=== PATIENT | male | born 1935 | race Caucasian/White ===

== ENCOUNTER → 2016-10-18 | Outpatient (CLI) | payer MEDICARE, OTHER ==
[~2016-10-18] MED LIST: ALLO300T2 PO; BUMETANIDE (0.25MG/ML) 4 ML VIAL IV ONE; BUMETANIDE (0.25MG/ML) 4 ML VIAL ONE; CYANOCOBALAMIN (B-12) 1000 MCG/1 ML VIAL IM ONE; CYANOCOBALAMIN (B-12) 1000 MCG/1 ML VIAL ONE; DIGO0.1262 PO; DILT60TA28 PO; FURO40TA4 PO; LEVO112T4 PO; POT20T PO; TICA90TA PO
[2016-10-18 10:00] VITALS: BP 139/64
[2016-10-18 11:45] VITALS: BP 133/62
[2016-10-18 18:58] LABS: BUN/Creatinine Ratio 29.9; Potassium 4.4 mmol/L (3.5-5.1)
== END | disposition home or self-care (01) ==
LOC: CHF HDHVI 10:02
PROVIDERS: ATTEND Internal Medicine Cardiovascular Disease
DX: I10 Essential (primary) hypertension (principal); D64.9 Anemia, unspecified
CPT/HCPCS: 36415; 80048; 93701; 96372; 96374; G0463

== ENCOUNTER → 2016-11-01 | Outpatient (CLI) | payer MEDICARE, OTHER ==
[~2016-11-01] VITALS: Ht 30.5 cm; Wt 106.3 kg
[~2016-11-01] MED LIST changes: -BUMETANIDE (0.25MG/ML) 4 ML VIAL IV ONE; -BUMETANIDE (0.25MG/ML) 4 ML VIAL ONE
[2016-11-01 11:30] VITALS: BP 129/67
[2016-11-01 17:10] LABS: Basophils # (auto) 0 uL; Basophils % (auto) 0.5 % (0.0-2.0); Eosinophils # (auto) 0.5 uL; Eosinophils % (auto) 6.8 % (0.0-7.0); Hematocrit 38.3 % (41.0-53.0); Hemoglobin 12.4 g/dL (13.5-17.5); Lymphocytes # (auto) 1.3 uL; Lymphocytes % (auto) 17.7 % (10.0-50.0); Mean Corpuscular Hemoglobin 31.8 pg (28.0-32.0); Mean Corpuscular Hgb Conc. 32.4 g/dL (32.0-36.0); Mean Platelet Volume 6.8 fL (7.4-10.4); Monocytes # (auto) 0.5 uL; Monocytes % (auto) 6.9 % (0.0-12.0); Neutrophils # (auto) 5.1 uL; Neutrophils % (auto) 68.1 % (37.0-80.0); Platelet Count (auto) 211 10^3/uL (140-450); Red Cell Distribution Width 16.6 % (11.6-16.0); White Blood Cell 7.5 10^3/uL (4.4-10.8)
== END | disposition home or self-care (01) ==
LOC: CHF HDHVI 10:35
PROVIDERS: ATTEND Internal Medicine Cardiovascular Disease
DX: T46.0X6D Underdosing of cardiac-stimulant glycosides and drugs of similar action, subsequent encounter (principal); M10.9 Gout, unspecified; D64.9 Anemia, unspecified
CPT/HCPCS: 36415; 80162; 84550; 85025; 85049; 96372; G0463

== ENCOUNTER → 2016-11-15 | Outpatient (CLI) | payer MEDICARE, OTHER ==
[~2016-11-15] VITALS: Ht 30.5 cm; Wt 107.5 kg
[~2016-11-15] MED LIST changes: +BUMETANIDE (0.25MG/ML) 4 ML VIAL IV ONE; +BUMETANIDE (0.25MG/ML) 4 ML VIAL ONE; -CYANOCOBALAMIN (B-12) 1000 MCG/1 ML VIAL IM ONE; -CYANOCOBALAMIN (B-12) 1000 MCG/1 ML VIAL ONE; +IOHEXOL 350 MG/ML 100ML IJ ONE
[2016-11-15 09:08] VITALS: BP 147/68
[2016-11-15 12:24] LABS: Basophils # (auto) 0 uL; Basophils % (auto) 0.4 % (0.0-2.0); Eosinophils # (auto) 0.4 uL; Hematocrit 42.7 % (41.0-53.0); Hemoglobin 13.5 g/dL (13.5-17.5); Lymphocytes % (auto) 24.2 % (10.0-50.0); Mean Corpuscular Hemoglobin 31.3 pg (28.0-32.0); Mean Corpuscular Hgb Conc. 31.7 g/dL (32.0-36.0); Mean Corpuscular Volume 98.8 fL (80.0-100.0); Mean Platelet Volume 6.9 fL (7.4-10.4); Monocytes # (auto) 0.3 uL; Monocytes % (auto) 3.8 % (0.0-12.0); Neutrophils # (auto) 5.4 uL; Neutrophils % (auto) 66.6 % (37.0-80.0); Platelet Count (auto) 251 10^3/uL (140-450); White Blood Cell 8.1 10^3/uL (4.4-10.8)
[2016-11-15 13:23] LABS: BUN/Creatinine Ratio 31.7; Calcium 9.1 mg/dL (8.5-10.1); Magnesium 2.5 mg/dL (1.6-2.6)
== END | disposition home or self-care (01) ==
LOC: Rad HDHVI 08:53
PROVIDERS: ATTEND Internal Medicine Cardiovascular Disease
DX: I10 Essential (primary) hypertension (principal); E11.9 Type 2 diabetes mellitus without complications; E83.40 Disorders of magnesium metabolism, unspecified; D64.9 Anemia, unspecified
CPT/HCPCS: 36415; 70496; 70498; 80048; 83036; 83735; 85025; 93306; 96374; G0463; J1642

== ENCOUNTER → 2016-11-28 | Outpatient (CLI) | payer MEDICARE, OTHER ==
[~2016-11-28] MED LIST changes: -BUMETANIDE (0.25MG/ML) 4 ML VIAL IV ONE; -BUMETANIDE (0.25MG/ML) 4 ML VIAL ONE; -IOHEXOL 350 MG/ML 100ML IJ ONE; +VANCOMYCIN 1GM/250ML D5W 250 ML IV ONE
[2016-11-28 14:40] VITALS: BP 114/58
[2016-11-28 16:50] VITALS: BP 129/65
[2016-11-28 17:40] LABS: Basophils # (auto) 0 uL; Eosinophils # (auto) 0.1 uL; Hemoglobin 13.4 g/dL (13.5-17.5); Mean Platelet Volume 7.7 fL (7.4-10.4)
[2016-11-28 17:48] LABS: Basophils % (auto) 0.1 % (0.0-2.0); Eosinophils % (auto) 0.9 % (0.0-7.0); Hematocrit 42.4 % (41.0-53.0); Lymphocytes # (auto) 0.9 uL; Mean Corpuscular Hemoglobin 31.2 pg (28.0-32.0); Mean Corpuscular Hgb Conc. 31.7 g/dL (32.0-36.0); Mean Corpuscular Volume 98.5 fL (80.0-100.0); Monocytes # (auto) 1.2 uL; Monocytes % (auto) 11.6 % (0.0-12.0); Neutrophils # (auto) 8.2 uL; Neutrophils % (auto) 78.4 % (37.0-80.0); Platelet Count (auto) 247 10^3/uL (140-450); Red Cell Distribution Width 16.1 % (11.6-16.0); White Blood Cell 10.5 10^3/uL (4.4-10.8)
[2016-11-28 18:59] LABS: Albumin 3.3 g/dL (3.4-5.0); Bilirubin, Total 1.4 mg/dL (0.2-1.0); Calcium 8.7 mg/dL (8.5-10.1); Potassium 4.2 mmol/L (3.5-5.1); Total Protein 7.9 g/dL (6.4-8.2); Uric Acid 7.8 mg/dL (3.5-7.2)
== END | disposition home or self-care (01) ==
LOC: CHF HDHVI 14:39
PROVIDERS: ATTEND Internal Medicine Cardiovascular Disease
DX: L03.113 Cellulitis of right upper limb (principal); I50.9 Heart failure, unspecified; J44.9 Chronic obstructive pulmonary disease, unspecified; M10.9 Gout, unspecified
CPT/HCPCS: 36415; 80053; 84550; 85025; 96365; G0463; J3370

== ENCOUNTER → 2016-12-13 | Outpatient (CLI) | payer MEDICARE, OTHER ==
[~2016-12-13] MED LIST changes: +CYANOCOBALAMIN (B-12) 1000 MCG/1 ML VIAL IM ONE; +TESTOSTERONE CYPIONATE 100 MG/0.5ML 10mLMDV HEART CENTER IM ONE; +TESTOSTERONE CYPIONATE 200 MG/ML 1ML VIAL IM ONE; -VANCOMYCIN 1GM/250ML D5W 250 ML IV ONE
[2016-12-13 11:30] VITALS: BP 122/63
== END | disposition home or self-care (01) ==
LOC: CHF HDHVI 10:13
PROVIDERS: ATTEND Internal Medicine Cardiovascular Disease
DX: I11.0 Hypertensive heart disease with heart failure (principal); I50.9 Heart failure, unspecified; M62.81 Muscle weakness (generalized); E29.1 Testicular hypofunction; R53.81 Other malaise; R53.83 Other fatigue
CPT/HCPCS: 96372; G0463; J1071

== ENCOUNTER → 2016-12-20 | Outpatient (CLI) | payer MEDICARE, OTHER ==
[~2016-12-20] MED LIST changes: +BUMETANIDE (0.25MG/ML) 4 ML VIAL IV ONE; +BUMETANIDE (0.25MG/ML) 4 ML VIAL ONE; +CYANOCOBALAMIN (B-12) 1000 MCG/1 ML VIAL ONE; +POTASSIUM CHL 20 Meq TABLET PO ONE; -TESTOSTERONE CYPIONATE 100 MG/0.5ML 10mLMDV HEART CENTER IM ONE; -TESTOSTERONE CYPIONATE 200 MG/ML 1ML VIAL IM ONE
[2016-12-20 11:15] VITALS: BP 119/63
[2016-12-20 12:10] LABS: Basophils # (auto) 0 uL; Basophils % (auto) 0.5 % (0.0-2.0); DEFINITIVE VIEW TRANSMISSION; Eosinophils # (auto) 0.7 uL; Eosinophils % (auto) 8.5 % (0.0-7.0); Hematocrit 39.4 % (41.0-53.0); Hemoglobin 13.2 g/dL (13.5-17.5); Lymphocytes # (auto) 2.1 uL; Lymphocytes % (auto) 25.2 % (10.0-50.0); Mean Corpuscular Hemoglobin 31.9 pg (28.0-32.0); Mean Corpuscular Hgb Conc. 33.5 g/dL (32.0-36.0); Mean Corpuscular Volume 95.2 fL (80.0-100.0); Mean Platelet Volume 7.2 fL (7.4-10.4); Monocytes # (auto) 0.5 uL; Monocytes % (auto) 5.8 % (0.0-12.0); Neutrophils # (auto) 5.1 uL; Platelet Count (auto) 211 10^3/uL (140-450); Red Cell Distribution Width 16.4 % (11.6-16.0); White Blood Cell 8.5 10^3/uL (4.4-10.8)
[2016-12-20 13:48] LABS: BUN/Creatinine Ratio 21.8; Magnesium 2.4 mg/dL (1.6-2.6); Potassium 4.1 mmol/L (3.5-5.1)
== END | disposition home or self-care (01) ==
LOC: CHF HDHVI 09:47
PROVIDERS: ATTEND Internal Medicine Cardiovascular Disease
DX: I10 Essential (primary) hypertension (principal); E83.40 Disorders of magnesium metabolism, unspecified; D64.9 Anemia, unspecified; E55.9 Vitamin D deficiency, unspecified
CPT/HCPCS: 36415; 80048; 82306; 83735; 85025; 96372; 96374; G0463

== ENCOUNTER → 2016-12-27 | Outpatient (CLI) | payer MEDICARE, OTHER ==
[2016-12-27 12:50] VITALS: BP 120/63
[2016-12-27 16:46] LABS: Potassium 3.9 mmol/L (3.5-5.1)
== END | disposition home or self-care (01) ==
LOC: CHF HDHVI 12:24
PROVIDERS: ATTEND Internal Medicine Cardiovascular Disease
DX: I50.9 Heart failure, unspecified (principal); Z79.899 Other long term (current) drug therapy; T46.0X6D Underdosing of cardiac-stimulant glycosides and drugs of similar action, subsequent encounter
CPT/HCPCS: 36415; 80162; 82565; 84132; 84520; 96372; 96374; G0463

== ENCOUNTER → 2016-12-29 | Outpatient (CLI) | payer MEDICARE, OTHER ==
[~2016-12-29] MED LIST changes: -CYANOCOBALAMIN (B-12) 1000 MCG/1 ML VIAL IM ONE; -CYANOCOBALAMIN (B-12) 1000 MCG/1 ML VIAL ONE
[2016-12-29 11:55] VITALS: BP 122/59
[2016-12-29 16:10] LABS: Basophils # (auto) 0 uL; Basophils % (auto) 0.3 % (0.0-2.0); Eosinophils # (auto) 0.6 uL; Eosinophils % (auto) 6.2 % (0.0-7.0); Hematocrit 38.7 % (41.0-53.0); Hemoglobin 12.8 g/dL (13.5-17.5); Lymphocytes # (auto) 1.4 uL; Lymphocytes % (auto) 15.3 % (10.0-50.0); Mean Corpuscular Hemoglobin 31.8 pg (28.0-32.0); Mean Corpuscular Hgb Conc. 33.2 g/dL (32.0-36.0); Mean Corpuscular Volume 95.9 fL (80.0-100.0); Monocytes # (auto) 0.7 uL; Monocytes % (auto) 7.3 % (0.0-12.0); Neutrophils # (auto) 6.5 uL; Neutrophils % (auto) 70.9 % (37.0-80.0); Platelet Count (auto) 215 10^3/uL (140-450); Red Cell Distribution Width 17.3 % (11.6-16.0); White Blood Cell 9.2 10^3/uL (4.4-10.8)
[2016-12-29 16:37] LABS: Potassium 3.7 mmol/L (3.5-5.1)
== END | disposition home or self-care (01) ==
LOC: CHF HDHVI 10:55
PROVIDERS: ATTEND Internal Medicine Cardiovascular Disease
DX: I50.9 Heart failure, unspecified (principal); Z79.899 Other long term (current) drug therapy; D64.9 Anemia, unspecified
CPT/HCPCS: 36415; 82565; 84132; 84520; 85025; 96374; G0463

== ENCOUNTER → 2017-01-03 | Outpatient (CLI) | payer MEDICARE, OTHER ==
[~2017-01-03] VITALS: Ht 30.5 cm; Wt 108.9 kg
[~2017-01-03] MED LIST changes: +CYANOCOBALAMIN (B-12) 1000 MCG/1 ML VIAL IM ONE; +CYANOCOBALAMIN (B-12) 1000 MCG/1 ML VIAL ONE
[2017-01-03 11:30] VITALS: BP 110/63
[2017-01-03 16:53] LABS: Potassium 3.7 mmol/L (3.5-5.1)
== END | disposition home or self-care (01) ==
LOC: CHF HDHVI 10:45
PROVIDERS: ATTEND Internal Medicine Cardiovascular Disease
DX: I50.9 Heart failure, unspecified (principal); Z79.899 Other long term (current) drug therapy
CPT/HCPCS: 36415; 82565; 84132; 84520; 96372; 96374; G0463

== ENCOUNTER → 2017-01-06 | Outpatient (CLI) | payer MEDICARE, OTHER ==
[~2017-01-06] MED LIST changes: -BUMETANIDE (0.25MG/ML) 4 ML VIAL IV ONE; -BUMETANIDE (0.25MG/ML) 4 ML VIAL ONE; -CYANOCOBALAMIN (B-12) 1000 MCG/1 ML VIAL IM ONE; -CYANOCOBALAMIN (B-12) 1000 MCG/1 ML VIAL ONE; -POTASSIUM CHL 20 Meq TABLET PO ONE
[2017-01-06 11:20] VITALS: BP 116/61
[2017-01-06 12:50] LABS: Potassium 3.7 mmol/L (3.5-5.1)
== END | disposition home or self-care (01) ==
LOC: CHF HDHVI 10:42
PROVIDERS: ATTEND Internal Medicine Cardiovascular Disease
DX: I10 Essential (primary) hypertension (principal); I50.9 Heart failure, unspecified; R94.4 Abnormal results of kidney function studies
CPT/HCPCS: 36415; 82565; 84132; 84520; 93701; G0463

== ENCOUNTER → 2017-01-10 | Outpatient (CLI) | payer MEDICARE, OTHER ==
[~2017-01-10] MED LIST changes: +CYANOCOBALAMIN (B-12) 1000 MCG/1 ML VIAL IM ONE; +CYANOCOBALAMIN (B-12) 1000 MCG/1 ML VIAL ONE; +POTASSIUM CHL 10 Meq TABLET PO ONE
[2017-01-10 11:15] VITALS: BP 130/62
[2017-01-10 12:52] LABS: Potassium 3.6 mmol/L (3.5-5.1)
== END | disposition home or self-care (01) ==
LOC: CHF HDHVI 10:19
PROVIDERS: ATTEND Internal Medicine Cardiovascular Disease
DX: I50.9 Heart failure, unspecified (principal); I10 Essential (primary) hypertension; R94.4 Abnormal results of kidney function studies
CPT/HCPCS: 36415; 82565; 84132; 84520; 94620; 96372; G0463

== ENCOUNTER → 2017-01-16 | Outpatient (CLI) | payer MEDICARE, OTHER ==
[~2017-01-16] MED LIST changes: -CYANOCOBALAMIN (B-12) 1000 MCG/1 ML VIAL IM ONE; -CYANOCOBALAMIN (B-12) 1000 MCG/1 ML VIAL ONE; -POTASSIUM CHL 10 Meq TABLET PO ONE
[2017-01-16 10:25] VITALS: BP 114/64
[2017-01-16 11:00] VITALS: BP 137/68
== END | disposition home or self-care (01) ==
LOC: CHF HDHVI 10:24
PROVIDERS: ATTEND Internal Medicine Cardiovascular Disease
DX: I83.002 Varicose veins of unspecified lower extremity with ulcer of calf (principal); I50.9 Heart failure, unspecified; I25.10 Atherosclerotic heart disease of native coronary artery without angina pectoris; J44.9 Chronic obstructive pulmonary disease, unspecified; I73.9 Peripheral vascular disease, unspecified; L97.929 Non-pressure chronic ulcer of unspecified part of left lower leg with unspecified severity; L97.919 Non-pressure chronic ulcer of unspecified part of right lower leg with unspecified severity
CPT/HCPCS: G0463

== ENCOUNTER → 2017-01-19 | Outpatient (CLI) | payer MEDICARE, OTHER ==
[~2017-01-19] MED LIST changes: +CYANOCOBALAMIN (B-12) 1000 MCG/1 ML VIAL IM ONE; +CYANOCOBALAMIN (B-12) 1000 MCG/1 ML VIAL ONE
[2017-01-19 11:00] VITALS: BP 128/62
[2017-01-19 16:35] LABS: Basophils # (auto) 0 uL; Basophils % (auto) 0.4 % (0.0-2.0); Eosinophils # (auto) 0.4 uL; Eosinophils % (auto) 3.8 % (0.0-7.0); Hematocrit 41.9 % (41.0-53.0); Hemoglobin 13.9 g/dL (13.5-17.5); Lymphocytes % (auto) 19.6 % (10.0-50.0); Mean Corpuscular Hemoglobin 31.4 pg (28.0-32.0); Mean Corpuscular Hgb Conc. 33.3 g/dL (32.0-36.0); Mean Corpuscular Volume 94.5 fL (80.0-100.0); Mean Platelet Volume 7.1 fL (7.4-10.4); Monocytes # (auto) 0.7 uL; Monocytes % (auto) 6.9 % (0.0-12.0); Neutrophils # (auto) 7.2 uL; Neutrophils % (auto) 69.3 % (37.0-80.0); Platelet Count (auto) 308 10^3/uL (140-450); Red Cell Distribution Width 16.8 % (11.6-16.0); White Blood Cell 10.4 10^3/uL (4.4-10.8)
[2017-01-19 16:44] LABS: Calcium 9.5 mg/dL (8.5-10.1); Potassium 3.3 mmol/L (3.5-5.1)
== END | disposition home or self-care (01) ==
LOC: CHF HDHVI 09:54
PROVIDERS: ATTEND Internal Medicine Cardiovascular Disease
DX: I10 Essential (primary) hypertension (principal); D64.9 Anemia, unspecified
CPT/HCPCS: 36415; 80048; 85025; 96372; G0463

== ENCOUNTER → 2017-01-24 | Outpatient (CLI) | payer MEDICARE, OTHER ==
[2017-01-24 10:35] VITALS: BP 125/66
[2017-01-24 11:30] VITALS: BP 120/68
[2017-01-24 13:23] LABS: Potassium 3.8 mmol/L (3.5-5.1)
== END | disposition home or self-care (01) ==
LOC: CHF HDHVI 10:46
PROVIDERS: ATTEND Internal Medicine Cardiovascular Disease
DX: I10 Essential (primary) hypertension (principal); R94.4 Abnormal results of kidney function studies
CPT/HCPCS: 36415; 82565; 84132; 84520; 96372; G0463

== ENCOUNTER → 2017-01-31 | Outpatient (CLI) | payer MEDICARE, OTHER ==
[~2017-01-31] VITALS: Ht 30.5 cm; Wt 0.5 kg
[~2017-01-31] MED LIST changes: +TESTOSTERONE CYPIONATE 200 MG/ML 1ML VIAL IM ONE
[2017-01-31 10:00] VITALS: BP 124/65
[2017-01-31 11:00] VITALS: BP 138/74
[2017-01-31 16:47] LABS: Potassium 3.1 mmol/L (3.5-5.1)
== END | disposition home or self-care (01) ==
LOC: CHF HDHVI 10:07
PROVIDERS: ATTEND Internal Medicine Cardiovascular Disease
DX: I10 Essential (primary) hypertension (principal); R94.4 Abnormal results of kidney function studies
CPT/HCPCS: 36415; 82565; 84132; 84520; 96372; G0463; J1071

== ENCOUNTER → 2017-02-02 | Outpatient (CLI) | payer MEDICARE, OTHER ==
[~2017-02-02] MED LIST changes: -CYANOCOBALAMIN (B-12) 1000 MCG/1 ML VIAL IM ONE; -CYANOCOBALAMIN (B-12) 1000 MCG/1 ML VIAL ONE; -TESTOSTERONE CYPIONATE 200 MG/ML 1ML VIAL IM ONE
[2017-02-02 09:55] VITALS: BP 123/52
[2017-02-02 10:17] VITALS: BP 127/72
== END | disposition home or self-care (01) ==
LOC: CHF HDHVI 09:59
PROVIDERS: ATTEND Internal Medicine Cardiovascular Disease
DX: E87.6 Hypokalemia (principal)
CPT/HCPCS: 36415; 84132; G0463

== ENCOUNTER → 2017-02-07 | Outpatient (CLI) | payer MEDICARE, OTHER ==
[~2017-02-07] MED LIST changes: +CYANOCOBALAMIN (B-12) 1000 MCG/1 ML VIAL IM ONE; +CYANOCOBALAMIN (B-12) 1000 MCG/1 ML VIAL ONE
[2017-02-07 10:30] VITALS: BP 119/58
[2017-02-07 11:50] VITALS: BP 114/58
[2017-02-07 16:27] LABS: Potassium 3.7 mmol/L (3.5-5.1)
== END | disposition home or self-care (01) ==
LOC: CHF HDHVI 10:32
PROVIDERS: ATTEND Internal Medicine Cardiovascular Disease
DX: E87.6 Hypokalemia (principal); R94.4 Abnormal results of kidney function studies
CPT/HCPCS: 36415; 82565; 84132; 84520; 93701; 96372; G0463

== ENCOUNTER → 2017-02-14 | Outpatient (CLI) | payer MEDICARE, OTHER ==
[~2017-02-14] MED LIST changes: +BUMETANIDE (0.25MG/ML) 4 ML VIAL IV ONE; +BUMETANIDE (0.25MG/ML) 4 ML VIAL ONE; +POTASSIUM CHL 20 Meq TABLET PO ONE
[2017-02-14 10:50] VITALS: BP 119/59
[2017-02-14 16:25] LABS: Magnesium 2.1 mg/dL (1.6-2.6); Potassium 4.1 mmol/L (3.5-5.1)
[2017-02-14 16:41] LABS: Basophils # (auto) 0 uL; Basophils % (auto) 0.4 % (0.0-2.0); Eosinophils # (auto) 0.4 uL; Eosinophils % (auto) 4.3 % (0.0-7.0); Hematocrit 41.4 % (41.0-53.0); Hemoglobin 13.5 g/dL (13.5-17.5); Lymphocytes # (auto) 1.9 uL; Lymphocytes % (auto) 19.6 % (10.0-50.0); Mean Corpuscular Hemoglobin 31.4 pg (28.0-32.0); Mean Corpuscular Hgb Conc. 32.6 g/dL (32.0-36.0); Mean Corpuscular Volume 96.1 fL (80.0-100.0); Mean Platelet Volume 6.8 fL (7.4-10.4); Monocytes # (auto) 0.9 uL; Monocytes % (auto) 9.2 % (0.0-12.0); Neutrophils # (auto) 6.6 uL; Neutrophils % (auto) 66.5 % (37.0-80.0); Platelet Count (auto) 280 10^3/uL (140-450); Red Cell Distribution Width 18.7 % (11.6-16.0); White Blood Cell 9.9 10^3/uL (4.4-10.8)
== END | disposition home or self-care (01) ==
LOC: CHF HDHVI 10:22
PROVIDERS: ATTEND Internal Medicine Cardiovascular Disease
DX: E83.40 Disorders of magnesium metabolism, unspecified (principal); E87.6 Hypokalemia; R94.4 Abnormal results of kidney function studies; D64.9 Anemia, unspecified
CPT/HCPCS: 36415; 82565; 83735; 84132; 84520; 85025; 96372; 96374; G0463

== ENCOUNTER → 2017-02-21 | Outpatient (CLI) | payer MEDICARE, OTHER ==
[~2017-02-21] MED LIST changes: -CYANOCOBALAMIN (B-12) 1000 MCG/1 ML VIAL IM ONE; -CYANOCOBALAMIN (B-12) 1000 MCG/1 ML VIAL ONE
[2017-02-21 10:40] VITALS: BP 120/64
[2017-02-21 11:40] VITALS: BP 123/60
[2017-02-21 16:57] LABS: Potassium 3.7 mmol/L (3.5-5.1)
== END | disposition home or self-care (01) ==
LOC: CHF HDHVI 10:33
PROVIDERS: ATTEND Internal Medicine Cardiovascular Disease
DX: I11.0 Hypertensive heart disease with heart failure (principal); I50.9 Heart failure, unspecified; I25.10 Atherosclerotic heart disease of native coronary artery without angina pectoris
CPT/HCPCS: 36415; 82565; 84132; 84520; 93701; 96374; G0463

== ENCOUNTER → 2017-02-28 | Outpatient (CLI) | payer MEDICARE, OTHER ==
[~2017-02-28] MED LIST changes: -BUMETANIDE (0.25MG/ML) 4 ML VIAL IV ONE; -BUMETANIDE (0.25MG/ML) 4 ML VIAL ONE; -POTASSIUM CHL 20 Meq TABLET PO ONE
[2017-02-28 10:30] VITALS: BP 107/70
[2017-02-28 11:50] VITALS: BP 123/73
== END | disposition home or self-care (01) ==
LOC: CHF HDHVI 10:32
PROVIDERS: ATTEND Internal Medicine Cardiovascular Disease
DX: I50.9 Heart failure, unspecified (principal); I27.2 Other secondary pulmonary hypertension; E87.70 Fluid overload, unspecified; T14.8 Other injury of unspecified body region; X58.XXXA Exposure to other specified factors, initial encounter; Y93.89 Activity, other specified; Y92.89 Other specified places as the place of occurrence of the external cause; Y99.8 Other external cause status
CPT/HCPCS: 94620; G0463

== ENCOUNTER → 2017-03-14 | Outpatient (CLI) | payer MEDICARE, OTHER ==
[~2017-03-14] MED LIST changes: +CYANOCOBALAMIN (B-12) 1000 MCG/1 ML VIAL IM ONE; +CYANOCOBALAMIN (B-12) 1000 MCG/1 ML VIAL ONE
[2017-03-14 17:28] LABS: Potassium 3.9 mmol/L (3.5-5.1)
== END | disposition home or self-care (01) ==
LOC: CHF HDHVI 10:07
PROVIDERS: ATTEND Internal Medicine Cardiovascular Disease
DX: R94.4 Abnormal results of kidney function studies (principal); E87.6 Hypokalemia
CPT/HCPCS: 36415; 82565; 84132; 84520; 96372; G0463

== ENCOUNTER → 2017-03-28 | Outpatient (CLI) | payer MEDICARE, OTHER ==
[~2017-03-28] MED LIST changes: +BUMETANIDE (0.25MG/ML) 4 ML VIAL IV ONE; +BUMETANIDE (0.25MG/ML) 4 ML VIAL ONE; -CYANOCOBALAMIN (B-12) 1000 MCG/1 ML VIAL IM ONE; -CYANOCOBALAMIN (B-12) 1000 MCG/1 ML VIAL ONE; +POTASSIUM CHL 20 Meq TABLET PO ONE
[2017-03-28 09:35] VITALS: BP 134/66
[2017-03-28 10:25] VITALS: BP 109/53
[2017-03-28 12:07] LABS: Basophils # (auto) 0 uL; Basophils % (auto) 0.5 % (0.0-2.0); Eosinophils # (auto) 0.5 uL; Eosinophils % (auto) 6.3 % (0.0-7.0); Hematocrit 38.8 % (41.0-53.0); Hemoglobin 12.9 g/dL (13.5-17.5); Lymphocytes # (auto) 2.2 uL; Lymphocytes % (auto) 25.6 % (10.0-50.0); Mean Corpuscular Hemoglobin 31.9 pg (28.0-32.0); Mean Corpuscular Hgb Conc. 33.3 g/dL (32.0-36.0); Mean Corpuscular Volume 95.7 fL (80.0-100.0); Mean Platelet Volume 6.9 fL (7.4-10.4); Monocytes # (auto) 0.5 uL; Monocytes % (auto) 5.5 % (0.0-12.0); Neutrophils # (auto) 5.4 uL; Neutrophils % (auto) 62.1 % (37.0-80.0); Platelet Count (auto) 222 10^3/uL (140-450); Red Cell Distribution Width 17.6 % (11.6-16.0); White Blood Cell 8.7 10^3/uL (4.4-10.8)
[2017-03-28 12:35] LABS: BUN/Creatinine Ratio 28.2; Calcium 8.5 mg/dL (8.5-10.1); Magnesium 2.3 mg/dL (1.6-2.6); Potassium 3.4 mmol/L (3.5-5.1)
== END | disposition home or self-care (01) ==
LOC: CHF HDHVI 09:35
PROVIDERS: ATTEND Internal Medicine Cardiovascular Disease
DX: I10 Essential (primary) hypertension (principal); D64.9 Anemia, unspecified; E83.42 Hypomagnesemia
CPT/HCPCS: 36415; 80048; 83735; 85025; 93701; 96374; G0463

== ENCOUNTER → 2017-04-11 | Outpatient (CLI) | payer MEDICARE, OTHER ==
[~2017-04-11] MED LIST changes: -BUMETANIDE (0.25MG/ML) 4 ML VIAL IV ONE; -BUMETANIDE (0.25MG/ML) 4 ML VIAL ONE; +CYANOCOBALAMIN (B-12) 1000 MCG/1 ML VIAL ONE; +CYANOCOBALAMIN (B-12) 1000 MCG/1 ML VIAL SUBCUT ONE; -POTASSIUM CHL 20 Meq TABLET PO ONE
[2017-04-11 10:30] VITALS: BP 122/65
[2017-04-11 12:24] LABS: Basophils # (auto) 0 uL; Basophils % (auto) 0.5 % (0.0-2.0); CONDITION Y; Eosinophils # (auto) 0.4 uL; Hematocrit 40.3 % (41.0-53.0); Hemoglobin 13.6 g/dL (13.5-17.5); Lymphocytes # (auto) 1.9 uL; Lymphocytes % (auto) 18.9 % (10.0-50.0); Mean Corpuscular Hemoglobin 32.2 pg (28.0-32.0); Mean Corpuscular Hgb Conc. 33.8 g/dL (32.0-36.0); Mean Corpuscular Volume 95.1 fL (80.0-100.0); Mean Platelet Volume 7.2 fL (7.4-10.4); Monocytes # (auto) 0.7 uL; Monocytes % (auto) 7.2 % (0.0-12.0); Neutrophils % (auto) 69.4 % (37.0-80.0); Platelet Count (auto) 269 10^3/uL (140-450); White Blood Cell 10.1 10^3/uL (4.4-10.8)
[2017-04-11 12:49] LABS: Potassium 3.7 mmol/L (3.5-5.1)
== END | disposition home or self-care (01) ==
LOC: CHF HDHVI 10:10
PROVIDERS: ATTEND Internal Medicine Cardiovascular Disease
DX: I50.9 Heart failure, unspecified (principal); I25.10 Atherosclerotic heart disease of native coronary artery without angina pectoris; E87.6 Hypokalemia; D64.9 Anemia, unspecified; R94.4 Abnormal results of kidney function studies; R53.83 Other fatigue
CPT/HCPCS: 36415; 82565; 84132; 84520; 85025; 96372; G0463; J3420

== ENCOUNTER → 2017-04-26 | Outpatient (CLI) | payer MEDICARE, OTHER ==
[~2017-04-26] VITALS: Ht 12.7 cm; Wt 101.2 kg
[~2017-04-26] MED LIST changes: +CYANOCOBALAMIN (B-12) 1000 MCG/1 ML VIAL IM ONE; -CYANOCOBALAMIN (B-12) 1000 MCG/1 ML VIAL SUBCUT ONE
[2017-04-26 10:30] VITALS: BP 118/58
[2017-04-26 12:33] LABS: Basophils # (auto) 0 uL; Basophils % (auto) 0.4 % (0.0-2.0); CONDITION Y; Eosinophils # (auto) 0.4 uL; Eosinophils % (auto) 3.5 % (0.0-7.0); Hematocrit 38.1 % (41.0-53.0); Hemoglobin 12.8 g/dL (13.5-17.5); Lymphocytes # (auto) 2.1 uL; Lymphocytes % (auto) 19.4 % (10.0-50.0); Mean Corpuscular Hemoglobin 32.3 pg (28.0-32.0); Mean Corpuscular Hgb Conc. 33.7 g/dL (32.0-36.0); Mean Corpuscular Volume 95.8 fL (80.0-100.0); Mean Platelet Volume 7.1 fL (7.4-10.4); Monocytes # (auto) 0.5 uL; Monocytes % (auto) 4.9 % (0.0-12.0); Neutrophils # (auto) 7.6 uL; Neutrophils % (auto) 71.8 % (37.0-80.0); Platelet Count (auto) 288 10^3/uL (140-450); Red Cell Distribution Width 16.9 % (11.6-16.0); White Blood Cell 10.6 10^3/uL (4.4-10.8)
[2017-04-26 13:13] LABS: BUN/Creatinine Ratio 34.1; Magnesium 2.3 mg/dL (1.6-2.6); Potassium 3.6 mmol/L (3.5-5.1)
== END | disposition home or self-care (01) ==
LOC: CHF HDHVI 09:39
PROVIDERS: ATTEND Internal Medicine Cardiovascular Disease
DX: I11.0 Hypertensive heart disease with heart failure (principal); I50.9 Heart failure, unspecified; I25.10 Atherosclerotic heart disease of native coronary artery without angina pectoris; J44.9 Chronic obstructive pulmonary disease, unspecified; E83.40 Disorders of magnesium metabolism, unspecified; D64.9 Anemia, unspecified; R53.83 Other fatigue; R53.81 Other malaise
CPT/HCPCS: 36415; 80048; 83735; 84403; 85025; 93701; 96372; G0463; J3420

== ENCOUNTER → 2017-05-02 | Outpatient (CLI) | payer MEDICARE, OTHER ==
[~2017-05-02] MED LIST changes: +TESTOSTERONE CYPIONATE 200 MG/ML 1ML VIAL IM ONE
[2017-05-02 10:30] VITALS: BP 126/56
== END | disposition home or self-care (01) ==
LOC: CHF HDHVI 10:04
PROVIDERS: ATTEND Internal Medicine Cardiovascular Disease
DX: I50.9 Heart failure, unspecified (principal); I25.10 Atherosclerotic heart disease of native coronary artery without angina pectoris; J44.9 Chronic obstructive pulmonary disease, unspecified; E34.9 Endocrine disorder, unspecified
CPT/HCPCS: 96372; G0463; J1071; J3420

== ENCOUNTER → 2017-05-16 | Outpatient (CLI) | payer MEDICARE, OTHER ==
[~2017-05-16] MED LIST changes: +BUMETANIDE (0.25MG/ML) 4 ML VIAL IV ONE; +BUMETANIDE (0.25MG/ML) 4 ML VIAL ONE; +POTASSIUM CHL 10 Meq TABLET PO ONE; +POTASSIUM CHL 20 Meq TABLET PO ONE
[2017-05-16 11:20] VITALS: BP 115/51
[2017-05-16 17:21] LABS: BUN/Creatinine Ratio 21.2; Calcium 8.2 mg/dL (8.5-10.1); Magnesium 2.4 mg/dL (1.6-2.6); Potassium 3.3 mmol/L (3.5-5.1)
[2017-05-16 17:30] LABS: Basophils # (auto) 0 uL; Basophils % (auto) 0.5 % (0.0-2.0); CONDITION Y; Eosinophils # (auto) 0.4 uL; Eosinophils % (auto) 4.2 % (0.0-7.0); Hemoglobin 12.7 g/dL (13.5-17.5); Lymphocytes # (auto) 1.7 uL; Lymphocytes % (auto) 18.6 % (10.0-50.0); Mean Corpuscular Hemoglobin 32.5 pg (28.0-32.0); Mean Corpuscular Hgb Conc. 33.3 g/dL (32.0-36.0); Mean Corpuscular Volume 97.6 fL (80.0-100.0); Mean Platelet Volume 7.2 fL (7.4-10.4); Monocytes # (auto) 0.6 uL; Monocytes % (auto) 6.1 % (0.0-12.0); Neutrophils # (auto) 6.3 uL; Neutrophils % (auto) 70.6 % (37.0-80.0); Platelet Count (auto) 253 10^3/uL (140-450); Red Cell Distribution Width 18.7 % (11.6-16.0)
== END | disposition home or self-care (01) ==
LOC: CHF HDHVI 10:40
PROVIDERS: ATTEND Internal Medicine Cardiovascular Disease
DX: I11.0 Hypertensive heart disease with heart failure (principal); I50.9 Heart failure, unspecified; J44.9 Chronic obstructive pulmonary disease, unspecified; D64.9 Anemia, unspecified; E83.42 Hypomagnesemia; E29.0 Testicular hyperfunction
CPT/HCPCS: 36415; 80048; 83735; 85025; 93701; 96372; G0463; J1071; J3420

== ENCOUNTER → 2017-05-18 | Outpatient (CLI) | payer MEDICARE, OTHER ==
[~2017-05-18] VITALS: Ht 33 cm; Wt 0.5 kg
[~2017-05-18] MED LIST changes: -BUMETANIDE (0.25MG/ML) 4 ML VIAL IV ONE; -BUMETANIDE (0.25MG/ML) 4 ML VIAL ONE; -CYANOCOBALAMIN (B-12) 1000 MCG/1 ML VIAL IM ONE; -CYANOCOBALAMIN (B-12) 1000 MCG/1 ML VIAL ONE; +METOLAZONE 5 MG TAB ONE; +METOLAZONE 5 MG TAB PO ONE; -TESTOSTERONE CYPIONATE 200 MG/ML 1ML VIAL IM ONE
[2017-05-18 10:35] VITALS: BP 114/58
[2017-05-18 11:00] VITALS: BP 118/60
== END | disposition home or self-care (01) ==
LOC: CHF HDHVI 10:11
PROVIDERS: ATTEND Internal Medicine Cardiovascular Disease
DX: I50.9 Heart failure, unspecified (principal); I27.0 Primary pulmonary hypertension; J44.9 Chronic obstructive pulmonary disease, unspecified
CPT/HCPCS: G0463

== ENCOUNTER → 2017-05-22 | Outpatient (CLI) | payer MEDICARE, OTHER ==
[~2017-05-22] MED LIST changes: +DOBUTamine 1000MCG/ML 250 ML IV ONE; +FUROSEMIDE 100 MG/10ML VIAL IV ONE; +FUROSEMIDE INJECTION 10 ML ONE; -METOLAZONE 5 MG TAB ONE; -METOLAZONE 5 MG TAB PO ONE; -POTASSIUM CHL 10 Meq TABLET PO ONE
[2017-05-22 13:30] VITALS: BP 128/69
== END | disposition home or self-care (01) ==
LOC: CHF HDHVI 09:56
PROVIDERS: ATTEND Internal Medicine Cardiovascular Disease
DX: E87.6 Hypokalemia (principal); R94.4 Abnormal results of kidney function studies
CPT/HCPCS: 36415; 82565; 84132; 84520; 96365; 96366; 96368; G0463; J1250; J1940; 96367; 96375

== ENCOUNTER → 2017-05-25 | Outpatient (CLI) | payer MEDICARE, OTHER ==
[~2017-05-25] VITALS: Ht 30.5 cm; Wt 104.3 kg
[2017-05-25] VITALS (8 sets, daily range): BP systolic 139–153; BP diastolic 52–63
[~2017-05-25] MED LIST changes: -FUROSEMIDE 100 MG/10ML VIAL IV ONE; +FUROSEMIDE INJECTION 100 MG in SODIUM CHL 0.9% 100 ML IV SCH
[2017-05-25 12:57] LABS: Potassium 3.9 mmol/L (3.5-5.1)
== END | disposition home or self-care (01) ==
LOC: CHF HDHVI 08:59
PROVIDERS: ATTEND Internal Medicine Cardiovascular Disease
DX: E87.6 Hypokalemia (principal); R94.4 Abnormal results of kidney function studies
CPT/HCPCS: 36415; 82565; 84132; 84520; J1250; J1940; 96365; 96366; G0463

== ENCOUNTER → 2017-05-29 | Outpatient (CLI) | payer MEDICARE, OTHER ==
[~2017-05-29] MED LIST changes: -DOBUTamine 1000MCG/ML 250 ML IV ONE; +FUROSEMIDE 20 MG/2 ML VIAL IV ONE; +FUROSEMIDE 20 MG/2 ML VIAL ONE; +FUROSEMIDE 40 MG/4 ML VIAL ONE; -FUROSEMIDE INJECTION 10 ML ONE; -FUROSEMIDE INJECTION 100 MG in SODIUM CHL 0.9% 100 ML IV SCH; +POTASSIUM CHL 20 Meq TABLET PO SCH
[2017-05-29 09:00] VITALS: BP 130/61
[2017-05-29 10:10] VITALS: BP 121/61
[2017-05-29 13:46] LABS: Potassium 4.2 mmol/L (3.5-5.1)
[2017-05-29 13:52] LABS: BUN/Creatinine Ratio 28.3
== END | disposition home or self-care (01) ==
LOC: CHF HDHVI 09:06
PROVIDERS: ATTEND Internal Medicine Cardiovascular Disease
DX: I11.0 Hypertensive heart disease with heart failure (principal); I50.9 Heart failure, unspecified; J44.9 Chronic obstructive pulmonary disease, unspecified; E87.70 Fluid overload, unspecified
CPT/HCPCS: 36415; 80048; 96374; G0463; J1940

== ENCOUNTER → 2017-06-01 | Outpatient (CLI) | payer MEDICARE, OTHER ==
[~2017-06-01] MED LIST changes: -FUROSEMIDE 20 MG/2 ML VIAL IV ONE; -FUROSEMIDE 20 MG/2 ML VIAL ONE; -FUROSEMIDE 40 MG/4 ML VIAL ONE; -POTASSIUM CHL 20 Meq TABLET PO ONE; -POTASSIUM CHL 20 Meq TABLET PO SCH
[2017-06-01 10:20] VITALS: BP 135/63
== END | disposition home or self-care (01) ==
LOC: CHF HDHVI 09:27
PROVIDERS: ATTEND Internal Medicine Cardiovascular Disease
DX: I50.9 Heart failure, unspecified (principal); I25.10 Atherosclerotic heart disease of native coronary artery without angina pectoris; J44.9 Chronic obstructive pulmonary disease, unspecified; Z95.5 Presence of coronary angioplasty implant and graft
CPT/HCPCS: 94620; G0463

== ENCOUNTER → 2017-06-05 | Outpatient (CLI) | payer MEDICARE, OTHER ==
[~2017-06-05] MED LIST changes: +BUMETANIDE (0.25MG/ML) 4 ML VIAL IV ONE; +BUMETANIDE (0.25MG/ML) 4 ML VIAL ONE; +CYANOCOBALAMIN (B-12) 1000 MCG/1 ML VIAL IM ONE; +CYANOCOBALAMIN (B-12) 1000 MCG/1 ML VIAL ONE; +POTASSIUM CHL 10 Meq TABLET PO ONE; +POTASSIUM CHL 20 Meq TABLET PO ONE; +TESTOSTERONE CYPIONATE 200 MG/ML 1ML VIAL IM ONE
[2017-06-05 09:45] VITALS: BP 120/56
[2017-06-05 10:30] VITALS: BP 110/50
[2017-06-05 13:20] LABS: Potassium 4.4 mmol/L (3.5-5.1)
[2017-06-05 14:26] LABS: B-Type Natriuretic Peptide 40.66 pg/mL (0-100)
[2017-06-05 14:29] LABS: Temperature: 24.1 C (20.0-25.0)
== END | disposition home or self-care (01) ==
LOC: CHF HDHVI 09:45
PROVIDERS: ATTEND Internal Medicine Cardiovascular Disease
DX: E87.6 Hypokalemia (principal); R94.4 Abnormal results of kidney function studies; I50.9 Heart failure, unspecified; D51.9 Vitamin B12 deficiency anemia, unspecified; I25.10 Atherosclerotic heart disease of native coronary artery without angina pectoris; J44.9 Chronic obstructive pulmonary disease, unspecified
CPT/HCPCS: 36415; 82565; 82607; 83880; 84132; 84520; 96372; 96374; G0463; J1071; J3420

== ENCOUNTER → 2017-06-08 | Outpatient (CLI) | payer MEDICARE, OTHER ==
[~2017-06-08] MED LIST changes: -BUMETANIDE (0.25MG/ML) 4 ML VIAL IV ONE; -BUMETANIDE (0.25MG/ML) 4 ML VIAL ONE; -CYANOCOBALAMIN (B-12) 1000 MCG/1 ML VIAL IM ONE; -CYANOCOBALAMIN (B-12) 1000 MCG/1 ML VIAL ONE; -POTASSIUM CHL 10 Meq TABLET PO ONE; -POTASSIUM CHL 20 Meq TABLET PO ONE; -TESTOSTERONE CYPIONATE 200 MG/ML 1ML VIAL IM ONE
[2017-06-08 10:00] VITALS: BP 117/56
[2017-06-08 11:10] VITALS: BP 130/60
[2017-06-08 12:17] LABS: Basophils # (auto) 0 uL; Basophils % (auto) 0.2 % (0.0-2.0); CONDITION Y; Eosinophils # (auto) 0.2 uL; Eosinophils % (auto) 1.3 % (0.0-7.0); Hematocrit 43.6 % (41.0-53.0); Hemoglobin 14.4 g/dL (13.5-17.5); Mean Corpuscular Hemoglobin 32.4 pg (28.0-32.0); Mean Corpuscular Hgb Conc. 33.1 g/dL (32.0-36.0); Mean Corpuscular Volume 97.9 fL (80.0-100.0); Monocytes # (auto) 0.6 uL; Monocytes % (auto) 4.8 % (0.0-12.0); Neutrophils # (auto) 10.6 uL; Neutrophils % (auto) 85.7 % (37.0-80.0); Platelet Count (auto) 300 10^3/uL (140-450); Red Cell Distribution Width 17.5 % (11.6-16.0); White Blood Cell 12.3 10^3/uL (4.4-10.8)
== END | disposition home or self-care (01) ==
LOC: CHF HDHVI 09:57
PROVIDERS: ATTEND Internal Medicine Cardiovascular Disease
DX: I50.9 Heart failure, unspecified (principal); L97.909 Non-pressure chronic ulcer of unspecified part of unspecified lower leg with unspecified severity; I83.009 Varicose veins of unspecified lower extremity with ulcer of unspecified site; J44.9 Chronic obstructive pulmonary disease, unspecified; M10.9 Gout, unspecified; D64.9 Anemia, unspecified
CPT/HCPCS: 36415; 84550; 85025; G0463

== ENCOUNTER → 2017-06-14 | Outpatient (CLI) | payer MEDICARE, OTHER ==
[~2017-06-14] MED LIST changes: +cefTRIAXone 1GM/50ML D5W 50 ML IV ONE
[2017-06-14 09:30] VITALS: BP 108/53
== END | disposition home or self-care (01) ==
LOC: CHF HDHVI 08:34
PROVIDERS: ATTEND Internal Medicine Cardiovascular Disease
DX: S91.301A Unspecified open wound, right foot, initial encounter (principal); X58.XXXA Exposure to other specified factors, initial encounter; Y93.89 Activity, other specified; Y92.89 Other specified places as the place of occurrence of the external cause; Y99.8 Other external cause status; I50.9 Heart failure, unspecified; E87.70 Fluid overload, unspecified
CPT/HCPCS: 96365; G0463; J0696; J1642

== ENCOUNTER → 2017-06-15 | Outpatient (CLI) | payer MEDICARE, OTHER ==
[2017-06-15 09:00] VITALS: BP 100/69
[2017-06-15 10:30] VITALS: BP 110/59
== END | disposition home or self-care (01) ==
LOC: CHF HDHVI 09:08
PROVIDERS: ATTEND Internal Medicine Cardiovascular Disease
DX: I83.015 Varicose veins of right lower extremity with ulcer other part of foot (principal); I83.025 Varicose veins of left lower extremity with ulcer other part of foot; L97.519 Non-pressure chronic ulcer of other part of right foot with unspecified severity; L97.529 Non-pressure chronic ulcer of other part of left foot with unspecified severity; I50.9 Heart failure, unspecified; E87.70 Fluid overload, unspecified
CPT/HCPCS: 96365; G0463; J0696

== ENCOUNTER → 2017-06-16 | Outpatient (CLI) | payer MEDICARE, OTHER ==
[~2017-06-16] VITALS: Ht 30.5 cm; Wt 1.0 kg
[~2017-06-16] MED LIST changes: +MUPIROCIN 2% OINT 22GM ONE; +MUPIROCIN 2% OINT 22GM TOP ONE; -cefTRIAXone 1GM/50ML D5W 50 ML IV ONE
[2017-06-16 08:50] VITALS: BP 120/62
[2017-06-16 10:35] VITALS: BP 109/61
== END | disposition home or self-care (01) ==
LOC: CHF HDHVI 08:55
PROVIDERS: ATTEND Internal Medicine Cardiovascular Disease
DX: I50.9 Heart failure, unspecified (principal); J44.9 Chronic obstructive pulmonary disease, unspecified; E87.70 Fluid overload, unspecified
CPT/HCPCS: G0463

== ENCOUNTER → 2017-06-20 | Outpatient (CLI) | payer MEDICARE, OTHER ==
[~2017-06-20] MED LIST changes: -MUPIROCIN 2% OINT 22GM ONE; -MUPIROCIN 2% OINT 22GM TOP ONE
[2017-06-20 13:10] VITALS: BP 118/56
[2017-06-20 14:00] VITALS: BP 111/61
== END | disposition home or self-care (01) ==
LOC: CHF HDHVI 13:00
PROVIDERS: ATTEND Internal Medicine Cardiovascular Disease
DX: I50.9 Heart failure, unspecified (principal); J44.9 Chronic obstructive pulmonary disease, unspecified; Z95.5 Presence of coronary angioplasty implant and graft
CPT/HCPCS: G0463

== ENCOUNTER → 2017-06-21 | Outpatient (CLI) | payer MEDICARE, OTHER ==
[2017-06-21 14:00] VITALS: BP 135/67
[2017-06-21 16:30] VITALS: BP 122/57
== END | disposition home or self-care (01) ==
LOC: CHF HDHVI 14:02
PROVIDERS: ATTEND Internal Medicine Cardiovascular Disease
DX: I50.9 Heart failure, unspecified (principal); L02.611 Cutaneous abscess of right foot; B95.62 Methicillin resistant Staphylococcus aureus infection as the cause of diseases classified elsewhere; E87.70 Fluid overload, unspecified
CPT/HCPCS: G0463

== ENCOUNTER → 2017-06-22 | Outpatient (CLI) | payer MEDICARE, OTHER ==
[2017-06-22 11:40] VITALS: BP 126/70
[2017-06-22 12:30] VITALS: BP 122/62
== END | disposition home or self-care (01) ==
LOC: CHF HDHVI 11:39
PROVIDERS: ATTEND Internal Medicine Cardiovascular Disease
DX: I50.9 Heart failure, unspecified (principal); J44.9 Chronic obstructive pulmonary disease, unspecified; Z99.81 Dependence on supplemental oxygen; S91.301A Unspecified open wound, right foot, initial encounter; A49.02 Methicillin resistant Staphylococcus aureus infection, unspecified site; X58.XXXA Exposure to other specified factors, initial encounter; Y93.89 Activity, other specified; Y92.89 Other specified places as the place of occurrence of the external cause; Y99.8 Other external cause status
CPT/HCPCS: G0463

== ENCOUNTER → 2017-06-27 | Outpatient (CLI) | payer MEDICARE, OTHER ==
[~2017-06-27] MED LIST changes: +CYANOCOBALAMIN (B-12) 1000 MCG/1 ML VIAL IM ONE; +CYANOCOBALAMIN (B-12) 1000 MCG/1 ML VIAL ONE; +MUPIROCIN 2% OINT 22GM ONE; +MUPIROCIN 2% OINT 22GM TOP ONE
[2017-06-27 10:15] VITALS: BP 112/59
[2017-06-27 10:50] VITALS: BP 111/50
== END | disposition home or self-care (01) ==
LOC: CHF HDHVI 10:09
PROVIDERS: ATTEND Internal Medicine Cardiovascular Disease
DX: I50.9 Heart failure, unspecified (principal); E87.70 Fluid overload, unspecified; I25.10 Atherosclerotic heart disease of native coronary artery without angina pectoris
CPT/HCPCS: 96372; G0463; J3420

== ENCOUNTER → 2017-07-04 | Outpatient (CLI) | payer MEDICARE, OTHER ==
[~2017-07-04] MED LIST changes: -CYANOCOBALAMIN (B-12) 1000 MCG/1 ML VIAL IM ONE; -CYANOCOBALAMIN (B-12) 1000 MCG/1 ML VIAL ONE; -MUPIROCIN 2% OINT 22GM ONE; -MUPIROCIN 2% OINT 22GM TOP ONE
[2017-07-04 10:20] VITALS: BP 128/63
[2017-07-04 11:25] VITALS: BP_SYST 121; BP_SYST 128; BP_DIAS 63; BP_DIAS 65
[2017-07-04 16:19] LABS: Magnesium 2.5 mg/dL (1.6-2.6); Potassium 3.7 mmol/L (3.5-5.1)
== END | disposition home or self-care (01) ==
LOC: CHF HDHVI 10:26
PROVIDERS: ATTEND Internal Medicine Cardiovascular Disease
DX: I50.9 Heart failure, unspecified (principal); I25.10 Atherosclerotic heart disease of native coronary artery without angina pectoris; E87.70 Fluid overload, unspecified; R94.4 Abnormal results of kidney function studies; E87.6 Hypokalemia; E83.42 Hypomagnesemia; Z99.81 Dependence on supplemental oxygen
CPT/HCPCS: 36415; 82565; 83735; 84132; 84520; G0463

== ENCOUNTER → 2017-07-11 | Outpatient (CLI) | payer MEDICARE, OTHER ==
[~2017-07-11] MED LIST changes: +MUPIROCIN 2% OINT 22GM ONE; +MUPIROCIN 2% OINT 22GM TOP ONE
[2017-07-11 11:25] VITALS: BP 124/59
== END | disposition home or self-care (01) ==
LOC: CHF HDHVI 10:08
PROVIDERS: ATTEND Internal Medicine Cardiovascular Disease
DX: I50.9 Heart failure, unspecified (principal); I25.10 Atherosclerotic heart disease of native coronary artery without angina pectoris; J44.9 Chronic obstructive pulmonary disease, unspecified; Z95.1 Presence of aortocoronary bypass graft
CPT/HCPCS: G0463

== ENCOUNTER → 2017-07-18 | Outpatient (CLI) | payer MEDICARE, OTHER ==
[~2017-07-18] MED LIST changes: -MUPIROCIN 2% OINT 22GM ONE; -MUPIROCIN 2% OINT 22GM TOP ONE
[2017-07-18 10:30] VITALS: BP 126/60
[2017-07-18 12:38] LABS: Basophils # (auto) 0.1 uL; Basophils % (auto) 0.7 % (0.0-2.0); Eosinophils # (auto) 0.5 uL; Eosinophils % (auto) 4.8 % (0.0-7.0); Hematocrit 41.3 % (41.0-53.0); Hemoglobin 13.7 g/dL (13.5-17.5); Lymphocytes # (auto) 2.2 uL; Lymphocytes % (auto) 23.4 % (10.0-50.0); Mean Corpuscular Hemoglobin 31.9 pg (28.0-32.0); Mean Corpuscular Hgb Conc. 33.2 g/dL (32.0-36.0); Mean Platelet Volume 7.1 fL (6.9-10.8); Monocytes # (auto) 0.6 uL; Monocytes % (auto) 6.6 % (0.0-12.0); Neutrophils # (auto) 6.1 uL; Neutrophils % (auto) 64.5 % (37.0-80.0); Nucleated Red Blood Cells % 0.1 %; Platelet Count (auto) 212 10^3/uL (140-450); Red Cell Distribution Width 16.4 % (11.8-14.3); White Blood Cell 9.4 10^3/uL (4.4-10.8)
[2017-07-18 13:17] LABS: BUN/Creatinine Ratio 36.6; Calcium 8.8 mg/dL (8.5-10.1); Potassium 3.6 mmol/L (3.5-5.1)
== END | disposition home or self-care (01) ==
LOC: CHF HDHVI 10:14
PROVIDERS: ATTEND Internal Medicine Cardiovascular Disease
DX: I10 Essential (primary) hypertension (principal); D64.9 Anemia, unspecified
CPT/HCPCS: 36415; 80048; 85025; G0463

== ENCOUNTER → 2017-08-01 | Outpatient (CLI) | payer MEDICARE, OTHER ==
[2017-08-01 09:40] VITALS: BP 151/55
[2017-08-01 10:35] VITALS: BP 121/61
== END | disposition home or self-care (01) ==
LOC: CHF HDHVI 09:32
PROVIDERS: ATTEND Internal Medicine Cardiovascular Disease
DX: I50.9 Heart failure, unspecified (principal); J44.9 Chronic obstructive pulmonary disease, unspecified; Z95.1 Presence of aortocoronary bypass graft
CPT/HCPCS: G0463

== ENCOUNTER → 2017-08-15 | Outpatient (CLI) | payer MEDICARE, OTHER ==
[2017-08-15 11:00] VITALS: BP 119/53
[2017-08-15 13:06] LABS: Potassium 3.6 mmol/L (3.5-5.1)
== END | disposition home or self-care (01) ==
LOC: CHF HDHVI 09:55
PROVIDERS: ATTEND Internal Medicine Cardiovascular Disease
DX: J44.9 Chronic obstructive pulmonary disease, unspecified (principal); E87.4 Mixed disorder of acid-base balance; R94.4 Abnormal results of kidney function studies; I50.9 Heart failure, unspecified
CPT/HCPCS: 36415; 82565; 84132; 84520; 93701; G0463

== ENCOUNTER → 2017-08-22 | Outpatient (CLI) | payer MEDICARE, OTHER ==
[2017-08-22 12:00] VITALS: BP_SYST 122; BP_SYST 129; BP_DIAS 57; BP_DIAS 59
[2017-08-22 15:46] LABS: Potassium 3.7 mmol/L (3.5-5.1)
== END | disposition home or self-care (01) ==
LOC: CHF HDHVI 10:38
PROVIDERS: ATTEND Internal Medicine Cardiovascular Disease
DX: J44.9 Chronic obstructive pulmonary disease, unspecified (principal); I50.9 Heart failure, unspecified; E87.6 Hypokalemia; R94.4 Abnormal results of kidney function studies; N28.9 Disorder of kidney and ureter, unspecified
CPT/HCPCS: 36415; 82565; 84132; 84520; G0463

== ENCOUNTER → 2017-09-05 | Outpatient (CLI) | payer MEDICARE, OTHER ==
[~2017-09-05] MED LIST changes: +CYANOCOBALAMIN (B-12) 1000 MCG/1 ML VIAL IM ONE; +CYANOCOBALAMIN (B-12) 1000 MCG/1 ML VIAL ONE
[2017-09-05 09:40] VITALS: BP 119/61
[2017-09-05 10:25] VITALS: BP 115/62
[2017-09-05 13:20] LABS: BUN/Creatinine Ratio 32.4; Calcium 8.8 mg/dL (8.5-10.1); Potassium 4.1 mmol/L (3.5-5.1)
== END | disposition home or self-care (01) ==
LOC: CHF HDHVI 09:47
PROVIDERS: ATTEND Internal Medicine Cardiovascular Disease
DX: I11.0 Hypertensive heart disease with heart failure (principal); I50.9 Heart failure, unspecified; J44.9 Chronic obstructive pulmonary disease, unspecified
CPT/HCPCS: 36415; 80048; 96372; G0463; J3420

== ENCOUNTER → 2017-09-14 | Outpatient (CLI) | payer MEDICARE, OTHER ==
[~2017-09-14] MED LIST changes: -CYANOCOBALAMIN (B-12) 1000 MCG/1 ML VIAL IM ONE; -CYANOCOBALAMIN (B-12) 1000 MCG/1 ML VIAL ONE
[2017-09-14 11:20] VITALS: BP 119/62
[2017-09-14 12:20] VITALS: BP 123/62
[2017-09-14 16:17] LABS: Basophils # (auto) 0.1 uL; Basophils % (auto) 0.6 % (0.0-2.0); Eosinophils # (auto) 0.5 uL; Eosinophils % (auto) 4.7 % (0.0-7.0); Hematocrit 39.8 % (41.0-53.0); Hemoglobin 13.4 g/dL (13.5-17.5); Lymphocytes # (auto) 1.8 uL; Lymphocytes % (auto) 18.1 % (10.0-50.0); Mean Corpuscular Hemoglobin 32.7 pg (28.0-32.0); Mean Corpuscular Hgb Conc. 33.8 g/dL (32.0-36.0); Mean Corpuscular Volume 96.8 fL (80.0-100.0); Monocytes # (auto) 0.7 uL; Monocytes % (auto) 7.5 % (0.0-12.0); Neutrophils # (auto) 6.7 uL; Neutrophils % (auto) 69.1 % (37.0-80.0); Nucleated Red Blood Cells % 0.2 %; Platelet Count (auto) 222 10^3/uL (140-450); Red Cell Distribution Width 17.2 % (11.8-14.3); White Blood Cell 9.7 10^3/uL (4.4-10.8)
[2017-09-14 16:36] LABS: Albumin 3.4 g/dL (3.4-5.0); BUN/Creatinine Ratio 38.2; Bilirubin, Total 0.7 mg/dL (0.2-1.0); Calcium 8.7 mg/dL (8.5-10.1); Potassium 4.2 mmol/L (3.5-5.1); Total Protein 8.3 g/dL (6.4-8.2)
== END | disposition home or self-care (01) ==
LOC: CHF HDHVI 11:20
PROVIDERS: ATTEND Internal Medicine Cardiovascular Disease
DX: I10 Essential (primary) hypertension (principal); D64.9 Anemia, unspecified; I25.10 Atherosclerotic heart disease of native coronary artery without angina pectoris
CPT/HCPCS: 36415; 80053; 80162; 85025; G0463

== ENCOUNTER → 2017-09-25 | Outpatient (CLI) | payer MEDICARE, OTHER ==
[2017-09-25 11:30] VITALS: BP 130/87
== END | disposition home or self-care (01) ==
LOC: CHF HDHVI 09:05
PROVIDERS: ATTEND Internal Medicine Cardiovascular Disease
DX: I50.9 Heart failure, unspecified (principal); J44.9 Chronic obstructive pulmonary disease, unspecified; I25.10 Atherosclerotic heart disease of native coronary artery without angina pectoris; I48.91 Unspecified atrial fibrillation
CPT/HCPCS: 93701; G0463

== ENCOUNTER → 2017-09-26 | Outpatient (CLI) | payer MEDICARE, OTHER ==
[2017-09-26 10:45] VITALS: BP 118/69
[2017-09-26 11:45] VITALS: BP 110/70
== END | disposition home or self-care (01) ==
LOC: CHF HDHVI 12:54
PROVIDERS: ATTEND Internal Medicine Cardiovascular Disease
DX: I50.9 Heart failure, unspecified (principal); J44.9 Chronic obstructive pulmonary disease, unspecified; I25.10 Atherosclerotic heart disease of native coronary artery without angina pectoris
CPT/HCPCS: G0463

== ENCOUNTER → 2017-09-29 | Outpatient (CLI) | payer MEDICARE, OTHER ==
[2017-09-29 10:30] VITALS: BP 103/63
== END | disposition home or self-care (01) ==
LOC: CHF HDHVI 09:40
PROVIDERS: ATTEND Internal Medicine Cardiovascular Disease
DX: I48.91 Unspecified atrial fibrillation (principal); J44.9 Chronic obstructive pulmonary disease, unspecified; I50.9 Heart failure, unspecified; Z79.899 Other long term (current) drug therapy
CPT/HCPCS: 36415; 80162; 93005; G0463

== ENCOUNTER → 2017-10-12 | Outpatient (CLI) | payer MEDICARE, OTHER ==
[~2017-10-12] VITALS: Ht 30.5 cm; Wt 0.5 kg
[~2017-10-12] MED LIST changes: +CYANOCOBALAMIN (B-12) 1000 MCG/1 ML VIAL IM ONE; +CYANOCOBALAMIN (B-12) 1000 MCG/1 ML VIAL ONE
[2017-10-12 10:50] VITALS: BP 106/70
[2017-10-12 16:01] LABS: Basophils # (auto) 0.1 uL; Basophils % (auto) 1.1 % (0.0-2.0); Eosinophils # (auto) 0.5 uL; Eosinophils % (auto) 5.9 % (0.0-7.0); Hematocrit 41.6 % (41.0-53.0); Hemoglobin 13.5 g/dL (13.5-17.5); Lymphocytes # (auto) 1.8 uL; Lymphocytes % (auto) 20.2 % (10.0-50.0); Mean Corpuscular Hemoglobin 32.7 pg (28.0-32.0); Mean Corpuscular Hgb Conc. 32.4 g/dL (32.0-36.0); Mean Corpuscular Volume 100.7 fL (80.0-100.0); Monocytes # (auto) 0.7 uL; Monocytes % (auto) 7.8 % (0.0-12.0); Neutrophils # (auto) 5.7 uL; Nucleated Red Blood Cells % 0.1 %; Platelet Count (auto) 197 10^3/uL (140-450); Red Blood Cells 4.13 10^6/uL (4.5-5.90); Red Cell Distribution Width 17.2 % (11.8-14.3); White Blood Cell 8.8 10^3/uL (4.4-10.8)
[2017-10-12 16:07] LABS: BUN/Creatinine Ratio 34.8; Calcium 8.6 mg/dL (8.5-10.1); Potassium 4.3 mmol/L (3.5-5.1)
== END | disposition home or self-care (01) ==
LOC: CHF HDHVI 09:42
PROVIDERS: ATTEND Internal Medicine Cardiovascular Disease
DX: I11.0 Hypertensive heart disease with heart failure (principal); I50.9 Heart failure, unspecified; J44.9 Chronic obstructive pulmonary disease, unspecified; I48.91 Unspecified atrial fibrillation; D64.9 Anemia, unspecified; D51.9 Vitamin B12 deficiency anemia, unspecified; E55.9 Vitamin D deficiency, unspecified; Z79.899 Other long term (current) drug therapy
CPT/HCPCS: 36415; 80048; 80162; 82306; 82607; 85025; 96372; G0463; J3420

== ENCOUNTER → 2017-10-19 | Outpatient (CLI) | payer MEDICARE, OTHER ==
[~2017-10-19] MED LIST changes: +ALBU2TAB4 NEB; -CYANOCOBALAMIN (B-12) 1000 MCG/1 ML VIAL IM ONE; -CYANOCOBALAMIN (B-12) 1000 MCG/1 ML VIAL ONE; +DOXA2TAB PO; +FUROSEMIDE 100 MG/10ML VIAL IV ONE; +FUROSEMIDE 40 MG/4 ML VIAL ONE; +HYDR-4683 PO; +POTASSIUM CHL 10 Meq TABLET PO ONE; +POTASSIUM CHL 20 Meq TABLET PO ONE; +RIV20T PO; +TORS10TA PO
[2017-10-19 11:48] VITALS: BP 115/72
== END | disposition home or self-care (01) ==
LOC: CHF HDHVI 10:16
PROVIDERS: ATTEND Internal Medicine Cardiovascular Disease
DX: I50.9 Heart failure, unspecified (principal); I25.10 Atherosclerotic heart disease of native coronary artery without angina pectoris; J44.9 Chronic obstructive pulmonary disease, unspecified; I27.81 Cor pulmonale (chronic)
CPT/HCPCS: 96374; G0463; J1940

== ENCOUNTER → 2017-11-02 | Outpatient (CLI) | payer MEDICARE, OTHER ==
[~2017-11-02] MED LIST changes: -FUROSEMIDE 100 MG/10ML VIAL IV ONE; -FUROSEMIDE 40 MG/4 ML VIAL ONE; -POTASSIUM CHL 10 Meq TABLET PO ONE; -POTASSIUM CHL 20 Meq TABLET PO ONE
== END | disposition home or self-care (01) ==
LOC: Rad HDHVI 14:51
PROVIDERS: ATTEND Internal Medicine Cardiovascular Disease
DX: I50.23 Acute on chronic systolic (congestive) heart failure (principal); I48.0 Paroxysmal atrial fibrillation
CPT/HCPCS: 93306

== ENCOUNTER 2017-11-06 15:09 | Inpatient (IN) | payer MEDICARE, OTHER ==
[~2017-11-06] VITALS: Ht 182.9 cm; Wt 96.7 kg
[~2017-11-06 15:09] MED LIST changes: -ALBU2TAB4 NEB; -ALBUTEROL SULF 2.5 MG/0.5ML(0.5%) NEB SOLN NEB SCH; -ALBUTEROL SULF 2.5 MG/0.5ML(0.5%) NEB SOLN ONE; -ALLOPURINOL 300 MG TAB PO SCH; -DIGOXIN 0.125 MG TAB PO SCH; -DOXA2TAB PO; -DOXAZOSIN MESYL 2 MG TAB PO SCH; -HYDR-4683 PO; -HYDROcodone-ACET 10/325MG TAB PO PRN; -LEVOFLOXACIN 500 MG TAB ONE; -LEVOFLOXACIN 500 MG TAB PO SCH; -LEVOTHYROXINE SODIUM 112 MCG TAB PO SCH; -MORPHINE SULFATE 10 MG/ML INJ 1ML SDV IV PRN; -NITROGLYCERIN 0.4 MG SL TAB SL PRN; -PATIENTS OWN MEDICATION PO SCH; -POTASSIUM CHL 20 Meq TABLET PO SCH; -RIV20T PO; -SODIUM CHLOR 0.9% PF (SALINE LOCK) 10ML VIAL IV SCH; -TORS10TA PO; -TORSEMIDE 20 MG TAB PO SCH; -VANCOMYCIN 1GM/250ML 250 ML IV ONE; -VANCOMYCIN 1GM/250ML 250 ML IV SCH
[2017-11-06 16:00] VITALS: BP 120/61
[2017-11-06] MEDS ORDERED: MORPHINE SULFATE 10 MG/ML INJ 1ML SDV IV PRN (16:15)
[2017-11-06] MEDS ORDERED: NITROGLYCERIN 0.4 MG SL TAB SL PRN (16:15)
[2017-11-06 17:11] VITALS: BP 120/61
[2017-11-06] MEDS: RIVAROXABAN 20 MG TAB PO SCH (17:27)
[2017-11-06] MEDS: TORSEMIDE 20 MG TAB PO SCH (17:27)
[2017-11-06] MEDS: HYDROcodone-ACET 10/325MG TAB PO PRN (17:29)
[2017-11-06] MEDS: ALBUTEROL SULF 2.5 MG/0.5ML(0.5%) NEB SOLN NEB SCH ×2 (18:05→22:13)
[2017-11-06] MEDS ORDERED: DOXA2TAB PO (19:31)
[2017-11-06] MEDS ORDERED: ALBU2TAB4 NEB (19:33)
[2017-11-06] MEDS ORDERED: RIV20T PO (19:33)
[2017-11-06] MEDS ORDERED: HYDR-4683 PO (19:33)
[2017-11-06] MEDS ORDERED: TORS10TA PO (19:33)
[2017-11-06 20:00] VITALS: BP 125/55
[2017-11-06] MEDS: SODIUM CHLOR 0.9% PF (SALINE LOCK) 10ML VIAL IV SCH (21:40)
[2017-11-06 22:00] VITALS: BP 125/55
[2017-11-06] MEDS ORDERED: POTASSIUM CHL 20 Meq TABLET PO SCH (22:00)
[2017-11-06] MEDS ORDERED: FUROSEMIDE ONE (23:47)
[2017-11-07] MEDS: DOBUTamine 1000MCG/ML 250 ML IV SCH ×4 (00:33→17:33)
[2017-11-07] MEDS: FUROSEMIDE INJECTION 250 MG in SODIUM CHL 0.9% 225 ML IV SCH ×2 (00:35→21:19)
[2017-11-07 05:00] VITALS: BP 105/56
[2017-11-07 05:55] LABS: Basophils # (auto) 0 uL; Basophils % (auto) 0.3 % (0.0-2.0); Eosinophils # (auto) 0.1 uL; Eosinophils % (auto) 0.9 % (0.0-7.0); Hemoglobin 13.7 g/dL (13.5-17.5); Lymphocytes # (auto) 1.2 uL; Lymphocytes % (auto) 11.7 % (10.0-50.0); Mean Corpuscular Hemoglobin 32.6 pg (28.0-32.0); Mean Corpuscular Hgb Conc. 34.2 g/dL (32.0-36.0); Mean Corpuscular Volume 95.4 fL (80.0-100.0); Monocytes # (auto) 0.9 uL; Monocytes % (auto) 8.7 % (0.0-12.0); Neutrophils # (auto) 8.3 uL; Neutrophils % (auto) 78.4 % (37.0-80.0); Nucleated Red Blood Cells % 0.1 %; Platelet Count (auto) 241 10^3/uL (140-450); Red Blood Cells 4.19 10^6/uL (4.5-5.90); Red Cell Distribution Width 15.9 % (11.8-14.3); White Blood Cell 10.7 10^3/uL (4.4-10.8)
[2017-11-07 06:24] LABS: BUN/Creatinine Ratio 35.2; Calcium 8.7 mg/dL (8.5-10.1); Potassium 3.3 mmol/L (3.5-5.1)
[2017-11-07] MEDS: IPRATROPIUM BROM 0.5 MG/2.5ML INH SOL NEB SCH ×4 (06:24→19:12)
[2017-11-07] MEDS: ALBUTEROL SULF 2.5 MG/0.5ML(0.5%) NEB SOLN NEB SCH ×4 (06:24→19:12)
[2017-11-07] MEDS: TORSEMIDE 20 MG TAB PO SCH ×2 (06:47→17:38)
[2017-11-07] MEDS: SODIUM CHLOR 0.9% PF (SALINE LOCK) 10ML VIAL IV SCH ×3 (06:47→21:23)
[2017-11-07] MEDS: LEVOTHYROXINE SODIUM 112 MCG TAB PO SCH (06:47)
[2017-11-07] MEDS: HYDROcodone-ACET 10/325MG TAB PO PRN ×2 (08:41→12:25)
[2017-11-07] MEDS: LEVOFLOXACIN 250MG 50 ML IV SCH (08:54)
[2017-11-07 08:57] VITALS: BP 104/53
[2017-11-07] MEDS ORDERED: LEVOFLOXACIN 500MG 100 ML IV SCH (10:00)
[2017-11-07] MEDS ORDERED: PATIENTS OWN MEDICATION PO SCH (10:00)
[2017-11-07] MEDS: DOXAZOSIN MESYL 2 MG TAB PO SCH (10:00)
[2017-11-07] MEDS ORDERED: POTASSIUM CHL 20 Meq TABLET PO ONE (10:00)
[2017-11-07] MEDS: ALLOPURINOL 300 MG TAB PO SCH (10:04)
[2017-11-07] MEDS: DIGOXIN 0.125 MG TAB PO SCH (10:04)
[2017-11-07] MEDS: POTASSIUM CHL 20 Meq TABLET PO SCH ×2 (10:12→21:23)
[2017-11-07] MEDS: VANCOMYCIN 1GM/250ML 250 ML IV SCH (11:05)
[2017-11-07 13:00] VITALS: BP 138/77
[2017-11-07 17:00] VITALS: BP 135/51
[2017-11-07] MEDS: RIVAROXABAN 20 MG TAB PO SCH (17:34)
[2017-11-07 20:00] VITALS: BP 125/70
[2017-11-07 22:00] VITALS: BP 125/47
[2017-11-08] VITALS (7 sets, daily range): BP systolic 106–125; BP diastolic 58–76
[2017-11-08] MEDS: DOBUTamine 1000MCG/ML 250 ML IV SCH ×2 (01:18→18:53)
[2017-11-08] MEDS: ALBUTEROL SULF 2.5 MG/0.5ML(0.5%) NEB SOLN NEB PRN (04:42)
[2017-11-08] MEDS: IPRATROPIUM BROM 0.5 MG/2.5ML INH SOL NEB PRN (04:42)
[2017-11-08] MEDS: TORSEMIDE 20 MG TAB PO SCH ×2 (06:34→17:46)
[2017-11-08] MEDS: SODIUM CHLOR 0.9% PF (SALINE LOCK) 10ML VIAL IV SCH ×3 (06:34→21:33)
[2017-11-08] MEDS: LEVOTHYROXINE SODIUM 112 MCG TAB PO SCH (06:35)
[2017-11-08] MEDS: IPRATROPIUM BROM 0.5 MG/2.5ML INH SOL NEB SCH ×4 (07:24→19:27)
[2017-11-08] MEDS: ALBUTEROL SULF 2.5 MG/0.5ML(0.5%) NEB SOLN NEB SCH ×4 (07:24→19:27)
[2017-11-08 10:19] LABS: INR 1.34 (0.9-1.15); Partial Thromboplastin Time 44.9 sec (22.64-33.71); Prothrombin Time 14.7 sec (9.37-12.3)
[2017-11-08] MEDS: LEVOFLOXACIN 250MG 50 ML IV SCH (10:35)
[2017-11-08] MEDS: DIGOXIN 0.125 MG TAB PO SCH (10:37)
[2017-11-08] MEDS: HYDROcodone-ACET 10/325MG TAB PO PRN (10:38)
[2017-11-08] MEDS: POTASSIUM CHL 20 Meq TABLET PO SCH ×2 (10:39→21:28)
[2017-11-08] MEDS: DOXAZOSIN MESYL 2 MG TAB PO SCH (10:39)
[2017-11-08] MEDS: ALLOPURINOL 300 MG TAB PO SCH (10:40)
[2017-11-08] MEDS: VANCOMYCIN 1GM/250ML 250 ML IV SCH (10:47)
[2017-11-08 17:19] LABS: Albumin 2.4 g/dL (3.4-5.0); BUN/Creatinine Ratio 34.6; Calcium 8.6 mg/dL (8.5-10.1); Potassium 3.2 mmol/L (3.5-5.1)
[2017-11-08 17:21] LABS: Bilirubin, Total 0.8 mg/dL (0.2-1.0); Total Protein 7.2 g/dL (6.4-8.2)
[2017-11-08] MEDS: RIVAROXABAN 20 MG TAB PO SCH (17:46)
[2017-11-08] MEDS: ASCORBIC ACID 500 MG TAB PO SCH (21:29)
[2017-11-08] MEDS: FUROSEMIDE INJECTION 250 MG in SODIUM CHL 0.9% 225 ML IV SCH (23:50)
[2017-11-09] MEDS: DOBUTamine 1000MCG/ML 250 ML IV SCH ×3 (02:10→20:41)
[2017-11-09 05:00] VITALS: BP 124/47
[2017-11-09] MEDS: TORSEMIDE 20 MG TAB PO SCH ×2 (06:00→18:08)
[2017-11-09] MEDS: LEVOTHYROXINE SODIUM 112 MCG TAB PO SCH (06:43)
[2017-11-09] MEDS: ALBUTEROL SULF 2.5 MG/0.5ML(0.5%) NEB SOLN NEB SCH ×4 (06:45→18:41)
[2017-11-09] MEDS: IPRATROPIUM BROM 0.5 MG/2.5ML INH SOL NEB SCH ×4 (06:45→18:41)
[2017-11-09] MEDS: SODIUM CHLOR 0.9% PF (SALINE LOCK) 10ML VIAL IV SCH ×3 (06:47→21:27)
[2017-11-09 07:15] LABS: Urine Bacteria NONE SEEN /hpf (None Seen); Urine Blood Negative /uL (Negative); Urine Specific Gravity 1.007 (1.001-1.035); Urine WBC <1 /hpf (0 - 3)
[2017-11-09] MEDS ORDERED: LIDOCAINE 2%HCL (LOCAL ANESTH.) INJ 20ML MDV ONE (07:16)
[2017-11-09] MEDS ORDERED: IOHEXOL 350 MG/ML 100ML IJ ONE (07:16)
[2017-11-09 08:00] VITALS: BP 132/53
[2017-11-09 08:18] LABS: Basophils # (auto) 0 uL; Basophils % (auto) 0.2 % (0.0-2.0); Eosinophils # (auto) 0.1 uL; Eosinophils % (auto) 0.8 % (0.0-7.0); Hematocrit 37.4 % (41.0-53.0); Hemoglobin 12.5 g/dL (13.5-17.5); Lymphocytes # (auto) 1.1 uL; Lymphocytes % (auto) 9.7 % (10.0-50.0); Mean Corpuscular Hemoglobin 32.1 pg (28.0-32.0); Mean Corpuscular Hgb Conc. 33.5 g/dL (32.0-36.0); Mean Corpuscular Volume 95.8 fL (80.0-100.0); Monocytes % (auto) 8.7 % (0.0-12.0); Neutrophils # (auto) 8.9 uL; Neutrophils % (auto) 80.6 % (37.0-80.0); Platelet Count (auto) 248 10^3/uL (140-450); Red Blood Cells 3.91 10^6/uL (4.5-5.90); Red Cell Distribution Width 16.1 % (11.8-14.3)
[2017-11-09 09:00] VITALS: BP 132/53
[2017-11-09] MEDS ORDERED: SODIUM BICARBONATE 8.4 % INJ 50ML VIAL IV ONE (11:00)
[2017-11-09] MEDS: POTASSIUM CHL 20 Meq TABLET PO SCH ×2 (13:00→21:29)
[2017-11-09] MEDS: DIGOXIN 0.125 MG TAB PO SCH (13:00)
[2017-11-09] MEDS: ASCORBIC ACID 500 MG TAB PO SCH ×2 (13:00→21:29)
[2017-11-09] MEDS: DOXAZOSIN MESYL 2 MG TAB PO SCH (13:00)
[2017-11-09] MEDS: MULTIPLE VITAMIN TAB PO SCH (13:00)
[2017-11-09] MEDS: ALLOPURINOL 300 MG TAB PO SCH (13:00)
[2017-11-09] MEDS: VANCOMYCIN 1GM/250ML 250 ML IV SCH (13:30)
[2017-11-09 13:31] LABS: BUN/Creatinine Ratio 31.8; Calcium 8.5 mg/dL (8.5-10.1)
[2017-11-09 13:56] LABS: Potassium 2.9 mmol/L (3.5-5.1)
[2017-11-09] MEDS ORDERED: POTASSIUM CHL 10% (20 MEQ/15ML) 15ml ORAL SOLN PO ONE (14:15)
[2017-11-09] MEDS: LEVOFLOXACIN 250MG 50 ML IV SCH (14:45)
[2017-11-09] MEDS: RIVAROXABAN 20 MG TAB PO SCH (18:08)
[2017-11-09 19:32] LABS: Basophils # (auto) 0.1 uL; Basophils % (auto) 0.6 % (0.0-2.0); Eosinophils # (auto) 0 uL; Hematocrit 35.2 % (41.0-53.0); Hemoglobin 11.9 g/dL (13.5-17.5); Lymphocytes # (auto) 0.9 uL; Lymphocytes % (auto) 8.4 % (10.0-50.0); Mean Corpuscular Hemoglobin 32.2 pg (28.0-32.0); Mean Corpuscular Hgb Conc. 33.8 g/dL (32.0-36.0); Mean Corpuscular Volume 95.4 fL (80.0-100.0); Monocytes # (auto) 1.2 uL; Monocytes % (auto) 10.6 % (0.0-12.0); Neutrophils % (auto) 80.4 % (37.0-80.0); Platelet Count (auto) 240 10^3/uL (140-450); Red Blood Cells 3.69 10^6/uL (4.5-5.90); Red Cell Distribution Width 15.9 % (11.8-14.3); White Blood Cell 11.3 10^3/uL (4.4-10.8)
[2017-11-09 19:47] LABS: Calcium 8.4 mg/dL (8.5-10.1); Potassium 3.5 mmol/L (3.5-5.1)
[2017-11-09 20:00] VITALS: BP_SYST 127; BP_SYST 137; BP_DIAS 60; BP_DIAS 65
[2017-11-09] MEDS: ACETAMINOPHEN 325 MG TAB PO PRN (22:48)
[2017-11-09] MEDS: FUROSEMIDE INJECTION 250 MG in SODIUM CHL 0.9% 225 ML IV SCH (23:30)
[2017-11-10] VITALS (7 sets, daily range): BP systolic 101–137; BP diastolic 45–66
[2017-11-10] MEDS: DOBUTamine 1000MCG/ML 250 ML IV SCH ×3 (01:09→14:50)
[2017-11-10] MEDS: FUROSEMIDE INJECTION 250 MG in SODIUM CHL 0.9% 225 ML IV SCH (03:31)
[2017-11-10] MEDS: SODIUM CHLOR 0.9% PF (SALINE LOCK) 10ML VIAL IV SCH ×3 (05:41→22:16)
[2017-11-10 05:44] LABS: Basophils # (auto) 0 uL; Basophils % (auto) 0.4 % (0.0-2.0); Eosinophils # (auto) 0 uL; Eosinophils % (auto) 0.1 % (0.0-7.0); Hematocrit 36.1 % (41.0-53.0); Hemoglobin 12.2 g/dL (13.5-17.5); Lymphocytes # (auto) 0.9 uL; Lymphocytes % (auto) 9.2 % (10.0-50.0); Mean Corpuscular Hemoglobin 32.3 pg (28.0-32.0); Mean Corpuscular Hgb Conc. 33.7 g/dL (32.0-36.0); Mean Corpuscular Volume 95.8 fL (80.0-100.0); Monocytes % (auto) 10.6 % (0.0-12.0); Neutrophils # (auto) 7.6 uL; Neutrophils % (auto) 79.7 % (37.0-80.0); Platelet Count (auto) 236 10^3/uL (140-450); Red Blood Cells 3.77 10^6/uL (4.5-5.90); Red Cell Distribution Width 16.3 % (11.8-14.3); White Blood Cell 9.6 10^3/uL (4.4-10.8)
[2017-11-10 06:00] LABS: BUN/Creatinine Ratio 33.3; Calcium 8.8 mg/dL (8.5-10.1); Potassium 3.2 mmol/L (3.5-5.1)
[2017-11-10] MEDS: LEVOTHYROXINE SODIUM 112 MCG TAB PO SCH (06:10)
[2017-11-10] MEDS: TORSEMIDE 20 MG TAB PO SCH (06:11)
[2017-11-10 06:22] LABS: Phosphorus 3.4 mg/dL (2.5-4.90)
[2017-11-10] MEDS: IPRATROPIUM BROM 0.5 MG/2.5ML INH SOL NEB SCH ×4 (06:51→19:22)
[2017-11-10] MEDS: ALBUTEROL SULF 2.5 MG/0.5ML(0.5%) NEB SOLN NEB SCH ×4 (06:51→19:22)
[2017-11-10] MEDS: LEVOFLOXACIN 250MG 50 ML IV SCH (10:20)
[2017-11-10] MEDS: POTASSIUM CHL 20 Meq TABLET PO SCH ×3 (10:21→22:15)
[2017-11-10] MEDS: DOXAZOSIN MESYL 2 MG TAB PO SCH (10:21)
[2017-11-10] MEDS: ASCORBIC ACID 500 MG TAB PO SCH ×3 (10:22→22:15)
[2017-11-10] MEDS: MULTIPLE VITAMIN TAB PO SCH (10:22)
[2017-11-10] MEDS: DIGOXIN 0.125 MG TAB PO SCH (10:22)
[2017-11-10] MEDS: ALLOPURINOL 300 MG TAB PO SCH (10:22)
[2017-11-10] MEDS: VANCOMYCIN 1GM/250ML 250 ML IV SCH (11:00)
[2017-11-10] MEDS: BOOST 8 ounces PO SCH (18:00)
[2017-11-10] MEDS: RIVAROXABAN 20 MG TAB PO SCH (18:00)
[2017-11-10] MEDS: ACETYLCYSTEINE 20%(200MG/ML) SOL 4ML NEB SCH ×2 (19:22→23:16)
[2017-11-10] MEDS: ALBUTEROL SULF 2.5 MG/0.5ML(0.5%) NEB SOLN NEB PRN (23:17)
[2017-11-10] MEDS: IPRATROPIUM BROM 0.5 MG/2.5ML INH SOL NEB PRN (23:17)
[2017-11-11] VITALS (7 sets, daily range): BP systolic 96–132; BP diastolic 52–74
[2017-11-11] MEDS: DOBUTamine 1000MCG/ML 250 ML IV SCH ×3 (00:36→18:26)
[2017-11-11] MEDS: ALBUTEROL SULF 2.5 MG/0.5ML(0.5%) NEB SOLN NEB PRN ×2 (02:50→22:18)
[2017-11-11] MEDS: ACETYLCYSTEINE 20%(200MG/ML) SOL 4ML NEB SCH ×6 (02:50→22:18)
[2017-11-11] MEDS: IPRATROPIUM BROM 0.5 MG/2.5ML INH SOL NEB PRN ×2 (02:50→22:18)
[2017-11-11 05:57] LABS: Albumin 2.2 g/dL (3.4-5.0); BUN/Creatinine Ratio 34.1; Bilirubin, Total 0.9 mg/dL (0.2-1.0); Calcium 8.7 mg/dL (8.5-10.1); Potassium 3.4 mmol/L (3.5-5.1); Total Protein 7.7 g/dL (6.4-8.2)
[2017-11-11] MEDS: FUROSEMIDE INJECTION 250 MG in SODIUM CHL 0.9% 225 ML IV SCH (06:00)
[2017-11-11] MEDS: SODIUM CHLOR 0.9% PF (SALINE LOCK) 10ML VIAL IV SCH ×3 (06:07→22:00)
[2017-11-11] MEDS: LEVOTHYROXINE SODIUM 112 MCG TAB PO SCH (06:08)
[2017-11-11] MEDS: IPRATROPIUM BROM 0.5 MG/2.5ML INH SOL NEB SCH ×4 (06:10→19:29)
[2017-11-11] MEDS: ALBUTEROL SULF 2.5 MG/0.5ML(0.5%) NEB SOLN NEB SCH ×4 (06:10→19:29)
[2017-11-11] MEDS: BOOST 8 ounces PO SCH ×3 (09:43→17:24)
[2017-11-11] MEDS: LEVOFLOXACIN 250MG 50 ML IV SCH (09:53)
[2017-11-11] MEDS: DIGOXIN 0.125 MG TAB PO SCH (09:54)
[2017-11-11] MEDS: POTASSIUM CHL 20 Meq TABLET PO SCH ×2 (09:54→22:31)
[2017-11-11] MEDS: MULTIPLE VITAMIN TAB PO SCH (09:54)
[2017-11-11] MEDS: ALLOPURINOL 300 MG TAB PO SCH (09:55)
[2017-11-11] MEDS: ASCORBIC ACID 500 MG TAB PO SCH ×2 (09:55→22:31)
[2017-11-11] MEDS: DOXAZOSIN MESYL 2 MG TAB PO SCH (09:55)
[2017-11-11] MEDS ORDERED: POTASSIUM CHL 20 Meq TABLET PO ONE (11:45)
[2017-11-11] MEDS: VANCOMYCIN 1GM/250ML 250 ML IV SCH (12:44)
[2017-11-11] MEDS: ACETAMINOPHEN 325 MG TAB PO PRN (12:45)
[2017-11-11] MEDS: RIVAROXABAN 20 MG TAB PO SCH (18:23)
[2017-11-12] VITALS (7 sets, daily range): BP systolic 114–128; BP diastolic 63–84
[2017-11-12] MEDS: ACETYLCYSTEINE 20%(200MG/ML) SOL 4ML NEB SCH ×6 (02:11→23:04)
[2017-11-12] MEDS: ALBUTEROL SULF 2.5 MG/0.5ML(0.5%) NEB SOLN NEB PRN ×2 (02:11→23:03)
[2017-11-12] MEDS: IPRATROPIUM BROM 0.5 MG/2.5ML INH SOL NEB PRN (02:11)
[2017-11-12] MEDS: DOBUTamine 1000MCG/ML 250 ML IV SCH ×3 (03:45→21:02)
[2017-11-12 05:18] LABS: Basophils # (auto) 0.1 uL; Basophils % (auto) 0.4 % (0.0-2.0); Eosinophils # (auto) 0 uL; Eosinophils % (auto) 0.1 % (0.0-7.0); Hemoglobin 12.4 g/dL (13.5-17.5); Lymphocytes # (auto) 0.7 uL; Lymphocytes % (auto) 4.7 % (10.0-50.0); Mean Corpuscular Hemoglobin 32.3 pg (28.0-32.0); Mean Corpuscular Hgb Conc. 33.5 g/dL (32.0-36.0); Mean Corpuscular Volume 96.6 fL (80.0-100.0); Monocytes # (auto) 0.8 uL; Monocytes % (auto) 5.3 % (0.0-12.0); Neutrophils # (auto) 12.9 uL; Neutrophils % (auto) 89.5 % (37.0-80.0); Platelet Count (auto) 245 10^3/uL (140-450); Red Blood Cells 3.83 10^6/uL (4.5-5.90); Red Cell Distribution Width 16.3 % (11.8-14.3); White Blood Cell 14.4 10^3/uL (4.4-10.8)
[2017-11-12 05:49] LABS: BUN/Creatinine Ratio 36.4; Calcium 8.9 mg/dL (8.5-10.1); Potassium 3.9 mmol/L (3.5-5.1)
[2017-11-12] MEDS: LEVOTHYROXINE SODIUM 112 MCG TAB PO SCH (06:06)
[2017-11-12] MEDS: SODIUM CHLOR 0.9% PF (SALINE LOCK) 10ML VIAL IV SCH ×3 (06:06→21:41)
[2017-11-12] MEDS: BOOST 8 ounces PO SCH ×3 (08:00→17:30)
[2017-11-12] MEDS: IPRATROPIUM BROM 0.5 MG/2.5ML INH SOL NEB SCH ×4 (08:05→19:16)
[2017-11-12] MEDS: ALBUTEROL SULF 2.5 MG/0.5ML(0.5%) NEB SOLN NEB SCH ×4 (08:05→19:16)
[2017-11-12] MEDS: LEVOFLOXACIN 250MG 50 ML IV SCH (10:05)
[2017-11-12] MEDS: DIGOXIN 0.125 MG TAB PO SCH (10:05)
[2017-11-12] MEDS: ALLOPURINOL 300 MG TAB PO SCH (10:05)
[2017-11-12] MEDS: MULTIPLE VITAMIN TAB PO SCH (10:05)
[2017-11-12] MEDS: DOXAZOSIN MESYL 2 MG TAB PO SCH (10:06)
[2017-11-12] MEDS: ASCORBIC ACID 500 MG TAB PO SCH ×2 (10:06→21:41)
[2017-11-12] MEDS: POTASSIUM CHL 20 Meq TABLET PO SCH (10:09)
[2017-11-12] MEDS: VANCOMYCIN 1GM/250ML 250 ML IV SCH (11:56)
[2017-11-12] MEDS ORDERED: POTASSIUM CHL 20 Meq TABLET PO ONE (14:15)
[2017-11-12] MEDS: RIVAROXABAN 20 MG TAB PO SCH (17:30)
[2017-11-13] VITALS: BP 104/79
[2017-11-13] MEDS: ACETAMINOPHEN 325 MG TAB PO PRN (01:00)
[2017-11-13] MEDS: ALBUTEROL SULF 2.5 MG/0.5ML(0.5%) NEB SOLN NEB PRN (02:33)
[2017-11-13] MEDS: ACETYLCYSTEINE 20%(200MG/ML) SOL 4ML NEB SCH ×6 (02:33→22:43)
[2017-11-13] MEDS: DOBUTamine 1000MCG/ML 250 ML IV SCH ×3 (02:48→19:10)
[2017-11-13 04:00] VITALS: BP 132/73
[2017-11-13] MEDS: SODIUM CHLOR 0.9% PF (SALINE LOCK) 10ML VIAL IV SCH ×3 (06:03→22:00)
[2017-11-13 06:04] LABS: Albumin 1.9 g/dL (3.4-5.0); BUN/Creatinine Ratio 42.6; Bilirubin, Total 0.9 mg/dL (0.2-1.0); Potassium 4.1 mmol/L (3.5-5.1); Total Protein 7.5 g/dL (6.4-8.2)
[2017-11-13] MEDS: LEVOTHYROXINE SODIUM 112 MCG TAB PO SCH (06:09)
[2017-11-13] MEDS: IPRATROPIUM BROM 0.5 MG/2.5ML INH SOL NEB SCH ×5 (07:11→22:43)
[2017-11-13] MEDS: ALBUTEROL SULF 2.5 MG/0.5ML(0.5%) NEB SOLN NEB SCH ×5 (07:11→22:43)
[2017-11-13 08:00] VITALS: BP 112/70
[2017-11-13] MEDS: BOOST 8 ounces PO SCH ×3 (08:00→18:22)
[2017-11-13 08:17] LABS: Basophils # (auto) 0.2 uL; Basophils % (auto) 1.4 % (0.0-2.0); Eosinophils # (auto) 0.1 uL; Eosinophils % (auto) 1.1 % (0.0-7.0); Hematocrit 35.2 % (41.0-53.0); Hemoglobin 11.4 g/dL (13.5-17.5); Lymphocytes # (auto) 0.9 uL; Mean Corpuscular Hemoglobin 31.4 pg (28.0-32.0); Mean Corpuscular Hgb Conc. 32.4 g/dL (32.0-36.0); Mean Corpuscular Volume 97.1 fL (80.0-100.0); Monocytes # (auto) 0.7 uL; Monocytes % (auto) 5.1 % (0.0-12.0); Neutrophils # (auto) 11.3 uL; Neutrophils % (auto) 85.4 % (37.0-80.0); Platelet Count (auto) 291 10^3/uL (140-450); Red Blood Cells 3.62 10^6/uL (4.5-5.90); Red Cell Distribution Width 16.4 % (11.8-14.3); White Blood Cell 13.2 10^3/uL (4.4-10.8)
[2017-11-13] MEDS: DIGOXIN 0.125 MG TAB PO SCH ×2 (10:00→16:14)
[2017-11-13] MEDS: ASCORBIC ACID 500 MG TAB PO SCH ×2 (10:00→22:01)
[2017-11-13] MEDS: ALLOPURINOL 300 MG TAB PO SCH ×2 (10:00→16:14)
[2017-11-13] MEDS: PRO-STAT 64 30ML GT SCH ×2 (10:00→22:00)
[2017-11-13] MEDS: DOXAZOSIN MESYL 2 MG TAB PO SCH ×2 (10:00→16:14)
[2017-11-13] MEDS: MULTIPLE VITAMIN TAB PO SCH (10:00)
[2017-11-13] MEDS: LEVOFLOXACIN 250MG 50 ML IV SCH (11:13)
[2017-11-13 11:45] VITALS: BP 123/66
[2017-11-13] MEDS: LINEZOLID 600MG/300ML 300 ML IV SCH ×2 (12:07→22:01)
[2017-11-13 15:46] VITALS: BP 122/66
[2017-11-13] MEDS ORDERED: SODIUM CHLORIDE 0.9% 500 ML IV ONE ×2 (16:45→18:45)
[2017-11-13] MEDS ORDERED: FUROSEMIDE 40 MG/4 ML VIAL IV ONE (18:00)
[2017-11-13] MEDS: RIVAROXABAN 20 MG TAB PO SCH (18:23)
[2017-11-13 19:50] VITALS: BP 120/71
[2017-11-14] MEDS: DOBUTamine 1000MCG/ML 250 ML IV SCH ×3 (01:11→20:01)
[2017-11-14] MEDS: ACETYLCYSTEINE 20%(200MG/ML) SOL 4ML NEB SCH ×6 (02:00→22:25)
[2017-11-14] MEDS: IPRATROPIUM BROM 0.5 MG/2.5ML INH SOL NEB SCH ×5 (05:52→22:26)
[2017-11-14] MEDS: ALBUTEROL SULF 2.5 MG/0.5ML(0.5%) NEB SOLN NEB SCH ×5 (05:52→22:26)
[2017-11-14 05:57] LABS: Basophils # (auto) 0.1 uL; Basophils % (auto) 0.8 % (0.0-2.0); Eosinophils # (auto) 0.2 uL; Eosinophils % (auto) 1.8 % (0.0-7.0); Hematocrit 34.4 % (41.0-53.0); Hemoglobin 11.4 g/dL (13.5-17.5); Lymphocytes % (auto) 7.7 % (10.0-50.0); Mean Corpuscular Hemoglobin 32.4 pg (28.0-32.0); Mean Corpuscular Hgb Conc. 33.2 g/dL (32.0-36.0); Mean Corpuscular Volume 97.4 fL (80.0-100.0); Monocytes # (auto) 0.8 uL; Monocytes % (auto) 5.6 % (0.0-12.0); Neutrophils # (auto) 11.4 uL; Neutrophils % (auto) 84.1 % (37.0-80.0); Platelet Count (auto) 294 10^3/uL (140-450); Red Blood Cells 3.54 10^6/uL (4.5-5.90); Red Cell Distribution Width 16.5 % (11.8-14.3); White Blood Cell 13.6 10^3/uL (4.4-10.8)
[2017-11-14 06:11] LABS: BUN/Creatinine Ratio 38.8; Calcium 8.9 mg/dL (8.5-10.1); Potassium 4.4 mmol/L (3.5-5.1)
[2017-11-14] MEDS: LEVOTHYROXINE SODIUM 112 MCG TAB PO SCH (06:12)
[2017-11-14] MEDS: SODIUM CHLOR 0.9% PF (SALINE LOCK) 10ML VIAL IV SCH ×3 (06:12→21:09)
[2017-11-14 08:00] VITALS: BP 117/58
[2017-11-14] MEDS: PRO-STAT 64 30ML GT SCH ×2 (08:30→21:08)
[2017-11-14] MEDS: BOOST 8 ounces PO SCH ×3 (08:30→18:11)
[2017-11-14] MEDS: LEVOFLOXACIN 250MG 50 ML IV SCH ×2 (09:58→10:00)
[2017-11-14] MEDS: ALLOPURINOL 300 MG TAB PO SCH (09:59)
[2017-11-14] MEDS: DOXAZOSIN MESYL 2 MG TAB PO SCH (09:59)
[2017-11-14] MEDS: LINEZOLID 600MG/300ML 300 ML IV SCH ×2 (09:59→21:10)
[2017-11-14] MEDS: DIGOXIN 0.125 MG TAB PO SCH (10:00)
[2017-11-14] MEDS: MULTIPLE VITAMIN TAB PO SCH (10:00)
[2017-11-14] MEDS: ASCORBIC ACID 500 MG TAB PO SCH ×2 (10:00→21:09)
[2017-11-14 11:53] VITALS: BP 112/60
[2017-11-14 15:53] VITALS: BP 97/53
[2017-11-14] MEDS: RIVAROXABAN 20 MG TAB PO SCH (18:11)
[2017-11-14 19:55] VITALS: BP 96/53
[2017-11-14] MEDS: ACETAMINOPHEN 325 MG TAB PO PRN (20:01)
[2017-11-14] MEDS: DOXYCYCLINE 100 MG TAB/CAP PO SCH (21:10)
[2017-11-15] VITALS (7 sets, daily range): BP systolic 91–123; BP diastolic 40–59
[2017-11-15] MEDS: ACETYLCYSTEINE 20%(200MG/ML) SOL 4ML NEB SCH ×6 (02:00→22:35)
[2017-11-15] MEDS: DOBUTamine 1000MCG/ML 250 ML IV SCH ×3 (04:17→23:04)
[2017-11-15] MEDS: SODIUM CHLOR 0.9% PF (SALINE LOCK) 10ML VIAL IV SCH ×3 (06:06→22:00)
[2017-11-15] MEDS: LEVOTHYROXINE SODIUM 112 MCG TAB PO SCH (06:06)
[2017-11-15] MEDS: ALBUTEROL SULF 2.5 MG/0.5ML(0.5%) NEB SOLN NEB SCH ×4 (06:10→19:14)
[2017-11-15] MEDS: IPRATROPIUM BROM 0.5 MG/2.5ML INH SOL NEB SCH ×4 (06:10→19:14)
[2017-11-15] MEDS: BOOST 8 ounces PO SCH ×3 (08:00→17:31)
[2017-11-15] MEDS: PRO-STAT 64 30ML GT SCH ×2 (10:00→22:00)
[2017-11-15] MEDS: MULTIPLE VITAMIN TAB PO SCH (11:30)
[2017-11-15] MEDS: ALLOPURINOL 300 MG TAB PO SCH (11:30)
[2017-11-15] MEDS: ASCORBIC ACID 500 MG TAB PO SCH ×2 (11:30→22:00)
[2017-11-15] MEDS: DOXYCYCLINE 100 MG TAB/CAP PO SCH ×2 (11:30→22:00)
[2017-11-15] MEDS: LINEZOLID 600MG/300ML 300 ML IV SCH ×2 (11:30→22:00)
[2017-11-15] MEDS: DOXAZOSIN MESYL 2 MG TAB PO SCH (11:31)
[2017-11-15] MEDS: DIGOXIN 0.125 MG TAB PO SCH (11:31)
[2017-11-15] MEDS ORDERED: D5W/SOD CHL 0.45% 1,000 ML IV ONE (17:15)
[2017-11-15] MEDS: RIVAROXABAN 20 MG TAB PO SCH (17:32)
[2017-11-15] MEDS: ALBUTEROL SULF 2.5 MG/0.5ML(0.5%) NEB SOLN NEB PRN (22:35)
[2017-11-15] MEDS: IPRATROPIUM BROM 0.5 MG/2.5ML INH SOL NEB PRN (22:35)
[2017-11-16] VITALS: BP 113/57
[2017-11-16] MEDS: ACETYLCYSTEINE 20%(200MG/ML) SOL 4ML NEB SCH ×6 (03:50→22:12)
[2017-11-16 04:00] VITALS: BP 112/61
[2017-11-16] MEDS: DOBUTamine 1000MCG/ML 250 ML IV SCH ×3 (04:27→16:19)
[2017-11-16 05:30] LABS: Basophils # (auto) 0.1 uL; Basophils % (auto) 0.6 % (0.0-2.0); Eosinophils # (auto) 0.1 uL; Eosinophils % (auto) 0.7 % (0.0-7.0); Hematocrit 35.4 % (41.0-53.0); Hemoglobin 11.1 g/dL (13.5-17.5); Lymphocytes # (auto) 1.1 uL; Lymphocytes % (auto) 7.6 % (10.0-50.0); Mean Corpuscular Hemoglobin 31.1 pg (28.0-32.0); Mean Corpuscular Hgb Conc. 31.4 g/dL (32.0-36.0); Mean Corpuscular Volume 99.1 fL (80.0-100.0); Monocytes # (auto) 0.6 uL; Monocytes % (auto) 4.4 % (0.0-12.0); Neutrophils % (auto) 86.7 % (37.0-80.0); Platelet Count (auto) 274 10^3/uL (140-450); Red Blood Cells 3.57 10^6/uL (4.5-5.90); Red Cell Distribution Width 17.4 % (11.8-14.3); White Blood Cell 13.8 10^3/uL (4.4-10.8)
[2017-11-16 05:57] LABS: Albumin 1.6 g/dL (3.4-5.0); BUN/Creatinine Ratio 39.9; Bilirubin, Total 0.9 mg/dL (0.2-1.0); Calcium 8.5 mg/dL (8.5-10.1); Potassium 4.3 mmol/L (3.5-5.1); Total Protein 7.2 g/dL (6.4-8.2)
[2017-11-16] MEDS: SODIUM CHLOR 0.9% PF (SALINE LOCK) 10ML VIAL IV SCH ×3 (06:00→21:42)
[2017-11-16] MEDS: ALBUTEROL SULF 2.5 MG/0.5ML(0.5%) NEB SOLN NEB SCH ×4 (06:40→19:25)
[2017-11-16] MEDS: IPRATROPIUM BROM 0.5 MG/2.5ML INH SOL NEB SCH ×4 (06:40→19:26)
[2017-11-16] MEDS: LEVOTHYROXINE SODIUM 112 MCG TAB PO SCH (07:00)
[2017-11-16 08:00] VITALS: BP 124/57
[2017-11-16 08:33] LABS: Urine Bacteria FEW /hpf (None Seen); Urine Blood 2+ /uL (Negative); Urine Specific Gravity 1.013 (1.001-1.035); Urine WBC 11 /hpf (0 - 3)
[2017-11-16] MEDS: PRO-STAT 64 30ML GT SCH ×2 (10:00→21:54)
[2017-11-16] MEDS: BOOST 8 ounces PO SCH ×3 (10:15→18:22)
[2017-11-16] MEDS: DOXAZOSIN MESYL 2 MG TAB PO SCH (10:16)
[2017-11-16] MEDS: LINEZOLID 600MG/300ML 300 ML IV SCH ×2 (10:16→21:43)
[2017-11-16] MEDS: ALLOPURINOL 300 MG TAB PO SCH (10:17)
[2017-11-16] MEDS: MULTIPLE VITAMIN TAB PO SCH (10:17)
[2017-11-16] MEDS: DIGOXIN 0.125 MG TAB PO SCH (10:17)
[2017-11-16] MEDS: ASCORBIC ACID 500 MG TAB PO SCH ×2 (10:17→21:43)
[2017-11-16] MEDS: DOXYCYCLINE 100 MG TAB/CAP PO SCH ×2 (10:17→21:43)
[2017-11-16 12:00] VITALS: BP 115/61
[2017-11-16] MEDS ORDERED: D5W/SOD CHL 0.45% 1,000 ML IV ONE (15:45)
[2017-11-16 16:00] VITALS: BP 120/69
[2017-11-16] MEDS: RIVAROXABAN 20 MG TAB PO SCH (18:22)
[2017-11-16] MEDS ORDERED: MORPHINE SULFATE 4 MG/ML SYR/VIAL IV PRN (19:30)
[2017-11-16 20:00] VITALS: BP 125/60
[2017-11-16] MEDS: ALBUTEROL SULF 2.5 MG/0.5ML(0.5%) NEB SOLN NEB PRN (22:12)
[2017-11-17] VITALS: BP 113/64
[2017-11-17] MEDS: ALBUTEROL SULF 2.5 MG/0.5ML(0.5%) NEB SOLN NEB PRN (02:37)
[2017-11-17] MEDS: IPRATROPIUM BROM 0.5 MG/2.5ML INH SOL NEB PRN ×2 (02:37→22:42)
[2017-11-17] MEDS: ACETYLCYSTEINE 20%(200MG/ML) SOL 4ML NEB SCH ×6 (02:37→22:42)
[2017-11-17] MEDS: DOBUTamine 1000MCG/ML 250 ML IV SCH ×3 (02:40→21:17)
[2017-11-17 03:50] VITALS: BP 121/53
[2017-11-17] MEDS: SODIUM CHLOR 0.9% PF (SALINE LOCK) 10ML VIAL IV SCH ×3 (06:09→21:25)
[2017-11-17] MEDS: LEVOTHYROXINE SODIUM 112 MCG TAB PO SCH (06:10)
[2017-11-17] MEDS: IPRATROPIUM BROM 0.5 MG/2.5ML INH SOL NEB SCH ×4 (07:01→18:34)
[2017-11-17] MEDS: ALBUTEROL SULF 2.5 MG/0.5ML(0.5%) NEB SOLN NEB SCH ×5 (07:01→22:42)
[2017-11-17 08:00] VITALS: BP 101/60
[2017-11-17] MEDS: BOOST 8 ounces PO SCH ×3 (08:00→17:35)
[2017-11-17] MEDS: DOXAZOSIN MESYL 2 MG TAB PO SCH (10:00)
[2017-11-17] MEDS: PRO-STAT 64 30ML GT SCH ×2 (10:29→21:19)
[2017-11-17] MEDS: DOXYCYCLINE 100 MG TAB/CAP PO SCH ×2 (11:41→21:20)
[2017-11-17] MEDS: LINEZOLID 600MG/300ML 300 ML IV SCH ×2 (11:41→21:25)
[2017-11-17] MEDS: ALLOPURINOL 300 MG TAB PO SCH (11:42)
[2017-11-17] MEDS: ASCORBIC ACID 500 MG TAB PO SCH ×2 (11:42→21:21)
[2017-11-17] MEDS: DIGOXIN 0.125 MG TAB PO SCH (11:42)
[2017-11-17] MEDS: MULTIPLE VITAMIN TAB PO SCH (11:47)
[2017-11-17 12:00] VITALS: BP 103/64
[2017-11-17 16:00] VITALS: BP 116/56
[2017-11-17] MEDS: RIVAROXABAN 20 MG TAB PO SCH (17:35)
[2017-11-17 20:00] VITALS: BP 102/55
[2017-11-18] VITALS (7 sets, daily range): BP systolic 97–116; BP diastolic 56–95
[2017-11-18] MEDS: IPRATROPIUM BROM 0.5 MG/2.5ML INH SOL NEB PRN ×2 (02:29→22:14)
[2017-11-18] MEDS: ALBUTEROL SULF 2.5 MG/0.5ML(0.5%) NEB SOLN NEB PRN ×3 (02:30→22:14)
[2017-11-18] MEDS: ACETYLCYSTEINE 20%(200MG/ML) SOL 4ML NEB SCH ×6 (02:30→22:14)
[2017-11-18] MEDS: LEVOTHYROXINE SODIUM 112 MCG TAB PO SCH (05:10)
[2017-11-18] MEDS: SODIUM CHLOR 0.9% PF (SALINE LOCK) 10ML VIAL IV SCH ×3 (05:11→22:00)
[2017-11-18] MEDS: ALBUTEROL SULF 2.5 MG/0.5ML(0.5%) NEB SOLN NEB SCH ×3 (07:24→14:28)
[2017-11-18] MEDS: IPRATROPIUM BROM 0.5 MG/2.5ML INH SOL NEB SCH ×4 (07:24→18:28)
[2017-11-18] MEDS: BOOST 8 ounces PO SCH ×3 (08:00→18:00)
[2017-11-18] MEDS: PRO-STAT 64 30ML GT SCH ×2 (09:50→22:00)
[2017-11-18] MEDS: DOXAZOSIN MESYL 2 MG TAB PO SCH (10:00)
[2017-11-18] MEDS: ALLOPURINOL 300 MG TAB PO SCH (10:14)
[2017-11-18] MEDS: DIGOXIN 0.125 MG TAB PO SCH (10:14)
[2017-11-18] MEDS: MULTIPLE VITAMIN TAB PO SCH (10:14)
[2017-11-18] MEDS: LINEZOLID 600MG/300ML 300 ML IV SCH ×2 (10:14→22:00)
[2017-11-18] MEDS: DOXYCYCLINE 100 MG TAB/CAP PO SCH ×2 (10:14→22:00)
[2017-11-18] MEDS: ASCORBIC ACID 500 MG TAB PO SCH ×2 (10:14→22:00)
[2017-11-18 14:51] LABS: Basophils # (auto) 0.1 uL; Basophils % (auto) 0.6 % (0.0-2.0); Eosinophils # (auto) 0.2 uL; Eosinophils % (auto) 2.4 % (0.0-7.0); Hematocrit 35.4 % (41.0-53.0); Hemoglobin 11.3 g/dL (13.5-17.5); Lymphocytes # (auto) 0.8 uL; Lymphocytes % (auto) 8.9 % (10.0-50.0); Mean Corpuscular Hemoglobin 31.5 pg (28.0-32.0); Mean Corpuscular Hgb Conc. 31.9 g/dL (32.0-36.0); Mean Corpuscular Volume 98.7 fL (80.0-100.0); Monocytes # (auto) 0.4 uL; Monocytes % (auto) 4.2 % (0.0-12.0); Neutrophils # (auto) 7.8 uL; Neutrophils % (auto) 83.9 % (37.0-80.0); Nucleated Red Blood Cells % 0.1 %; Platelet Count (auto) 253 10^3/uL (140-450); Red Blood Cells 3.58 10^6/uL (4.5-5.90); Red Cell Distribution Width 17.1 % (11.8-14.3); White Blood Cell 9.3 10^3/uL (4.4-10.8)
[2017-11-18 15:15] LABS: BUN/Creatinine Ratio 48.4; Calcium 8.7 mg/dL (8.5-10.1); Potassium 4.8 mmol/L (3.5-5.1)
[2017-11-18] MEDS: RIVAROXABAN 20 MG TAB PO SCH (18:00)
[2017-11-19] VITALS (7 sets, daily range): BP systolic 90–109; BP diastolic 48–64
[2017-11-19] MEDS: IPRATROPIUM BROM 0.5 MG/2.5ML INH SOL NEB PRN ×2 (02:20→22:21)
[2017-11-19] MEDS: ACETYLCYSTEINE 20%(200MG/ML) SOL 4ML NEB SCH ×5 (02:20→22:21)
[2017-11-19] MEDS: ALBUTEROL SULF 2.5 MG/0.5ML(0.5%) NEB SOLN NEB PRN ×2 (02:20→22:21)
[2017-11-19] MEDS: ACETAMINOPHEN 325 MG TAB PO PRN (04:15)
[2017-11-19] MEDS: SODIUM CHLOR 0.9% PF (SALINE LOCK) 10ML VIAL IV SCH ×3 (06:00→21:45)
[2017-11-19] MEDS: IPRATROPIUM BROM 0.5 MG/2.5ML INH SOL NEB SCH ×4 (06:34→18:20)
[2017-11-19] MEDS: ALBUTEROL SULF 2.5 MG/0.5ML(0.5%) NEB SOLN NEB SCH ×4 (06:34→18:20)
[2017-11-19] MEDS: LEVOTHYROXINE SODIUM 112 MCG TAB PO SCH (07:00)
[2017-11-19] MEDS: BOOST 8 ounces PO SCH ×3 (08:00→17:56)
[2017-11-19] MEDS: LINEZOLID 600MG/300ML 300 ML IV SCH ×2 (09:42→21:46)
[2017-11-19] MEDS: ASCORBIC ACID 500 MG TAB PO SCH ×2 (09:43→21:46)
[2017-11-19] MEDS: DOXYCYCLINE 100 MG TAB/CAP PO SCH ×2 (09:43→21:46)
[2017-11-19] MEDS: MULTIPLE VITAMIN TAB PO SCH (09:43)
[2017-11-19] MEDS: DOXAZOSIN MESYL 2 MG TAB PO SCH (09:43)
[2017-11-19] MEDS: DIGOXIN 0.125 MG TAB PO SCH (09:43)
[2017-11-19] MEDS: ALLOPURINOL 300 MG TAB PO SCH (09:43)
[2017-11-19] MEDS: PRO-STAT 64 30ML GT SCH ×2 (10:01→22:00)
[2017-11-19] MEDS ORDERED: TESTOSTERONE CYPIONATE 200 MG/ML 1ML VIAL IM ONE (10:30)
[2017-11-19 12:02] LABS: BUN/Creatinine Ratio 52.1; Calcium 9.1 mg/dL (8.5-10.1); Potassium 5.1 mmol/L (3.5-5.1)
[2017-11-19] MEDS ORDERED: D5W/SOD CHL 0.45% 1,000 ML IV ONE (13:45)
[2017-11-19] MEDS: RIVAROXABAN 20 MG TAB PO SCH (17:56)
[2017-11-20] MEDS: IPRATROPIUM BROM 0.5 MG/2.5ML INH SOL NEB PRN (02:27)
[2017-11-20] MEDS: ALBUTEROL SULF 2.5 MG/0.5ML(0.5%) NEB SOLN NEB PRN ×2 (02:27→22:26)
[2017-11-20] MEDS: ACETYLCYSTEINE 20%(200MG/ML) SOL 4ML NEB SCH ×6 (02:27→22:25)
[2017-11-20 04:41] VITALS: BP 92/53
[2017-11-20 05:50] LABS: Basophils # (auto) 0 uL; Basophils % (auto) 0.4 % (0.0-2.0); Eosinophils # (auto) 0.2 uL; Hematocrit 30.9 % (41.0-53.0); Hemoglobin 10.1 g/dL (13.5-17.5); Lymphocytes % (auto) 10.6 % (10.0-50.0); Mean Corpuscular Hgb Conc. 32.5 g/dL (32.0-36.0); Mean Corpuscular Volume 98.3 fL (80.0-100.0); Monocytes # (auto) 0.4 uL; Monocytes % (auto) 4.3 % (0.0-12.0); Neutrophils # (auto) 7.8 uL; Neutrophils % (auto) 82.7 % (37.0-80.0); Nucleated Red Blood Cells % 0.1 %; Platelet Count (auto) 191 10^3/uL (140-450); Red Blood Cells 3.15 10^6/uL (4.5-5.90); Red Cell Distribution Width 16.8 % (11.8-14.3); White Blood Cell 9.4 10^3/uL (4.4-10.8)
[2017-11-20] MEDS: SODIUM CHLOR 0.9% PF (SALINE LOCK) 10ML VIAL IV SCH ×3 (05:52→22:03)
[2017-11-20] MEDS: LEVOTHYROXINE SODIUM 112 MCG TAB PO SCH (05:52)
[2017-11-20 06:20] LABS: Albumin 1.3 g/dL (3.4-5.0); BUN/Creatinine Ratio 51.4; Bilirubin, Total 0.4 mg/dL (0.2-1.0); Calcium 8.8 mg/dL (8.5-10.1); Potassium 4.9 mmol/L (3.5-5.1); Total Protein 6.3 g/dL (6.4-8.2)
[2017-11-20] MEDS: ALBUTEROL SULF 2.5 MG/0.5ML(0.5%) NEB SOLN NEB SCH ×4 (07:15→18:32)
[2017-11-20] MEDS: IPRATROPIUM BROM 0.5 MG/2.5ML INH SOL NEB SCH ×4 (07:15→18:32)
[2017-11-20] MEDS: SODIUM CHLORIDE 0.9% 1,000 ML IV SCH ×2 (07:30→17:30)
[2017-11-20] MEDS: BOOST 8 ounces PO SCH ×3 (08:00→18:00)
[2017-11-20 09:10] VITALS: BP 101/47
[2017-11-20] MEDS: DOXYCYCLINE 100 MG TAB/CAP PO SCH ×2 (10:00→22:06)
[2017-11-20] MEDS: ASCORBIC ACID 500 MG TAB PO SCH ×2 (10:00→22:06)
[2017-11-20] MEDS: PRO-STAT 64 30ML GT SCH ×2 (10:00→22:00)
[2017-11-20] MEDS: DOXAZOSIN MESYL 2 MG TAB PO SCH (10:00)
[2017-11-20] MEDS: LINEZOLID 600MG/300ML 300 ML IV SCH ×2 (10:10→22:06)
[2017-11-20 13:15] VITALS: BP 101/52
[2017-11-20 16:45] VITALS: BP 96/55
[2017-11-20] MEDS ORDERED: EPOETIN ALFA 4,000 UNIT/ML VL SC ONE (17:00)
[2017-11-20] MEDS: DIGOXIN 0.125 MG TAB PO SCH (18:47)
[2017-11-20] MEDS: MULTIPLE VITAMIN TAB PO SCH (18:47)
[2017-11-20] MEDS: RIVAROXABAN 20 MG TAB PO SCH (18:48)
[2017-11-20] MEDS: ALLOPURINOL 300 MG TAB PO SCH (18:48)
[2017-11-20 21:51] VITALS: BP 91/50
[2017-11-21] MEDS: SODIUM CHLORIDE 0.9% 1,000 ML IV SCH (01:12)
[2017-11-21] MEDS: ALBUTEROL SULF 2.5 MG/0.5ML(0.5%) NEB SOLN NEB PRN (01:58)
[2017-11-21] MEDS: ACETYLCYSTEINE 20%(200MG/ML) SOL 4ML NEB SCH ×6 (01:58→22:06)
[2017-11-21 05:19] VITALS: BP 101/60
[2017-11-21 05:30] LABS: Basophils # (auto) 0.1 uL; Basophils % (auto) 0.7 % (0.0-2.0); Eosinophils # (auto) 0.2 uL; Eosinophils % (auto) 2.1 % (0.0-7.0); Hematocrit 31.2 % (41.0-53.0); Hemoglobin 9.8 g/dL (13.5-17.5); Lymphocytes # (auto) 1.2 uL; Lymphocytes % (auto) 14.4 % (10.0-50.0); Mean Corpuscular Hemoglobin 31.1 pg (28.0-32.0); Mean Corpuscular Hgb Conc. 31.4 g/dL (32.0-36.0); Mean Corpuscular Volume 99.1 fL (80.0-100.0); Monocytes # (auto) 0.4 uL; Neutrophils # (auto) 6.6 uL; Neutrophils % (auto) 77.8 % (37.0-80.0); Nucleated Red Blood Cells % 0.1 %; Platelet Count (auto) 210 10^3/uL (140-450); Red Blood Cells 3.15 10^6/uL (4.5-5.90); Red Cell Distribution Width 17.3 % (11.8-14.3); White Blood Cell 8.5 10^3/uL (4.4-10.8)
[2017-11-21 06:00] LABS: BUN/Creatinine Ratio 56.4; Calcium 9.3 mg/dL (8.5-10.1); Potassium 4.7 mmol/L (3.5-5.1)
[2017-11-21] MEDS: SODIUM CHLOR 0.9% PF (SALINE LOCK) 10ML VIAL IV SCH ×3 (06:03→22:52)
[2017-11-21] MEDS: LEVOTHYROXINE SODIUM 112 MCG TAB PO SCH (06:03)
[2017-11-21] MEDS: ALBUTEROL SULF 2.5 MG/0.5ML(0.5%) NEB SOLN NEB SCH ×5 (07:03→22:06)
[2017-11-21] MEDS: IPRATROPIUM BROM 0.5 MG/2.5ML INH SOL NEB SCH ×5 (07:03→22:06)
[2017-11-21 08:00] VITALS: BP 99/52
[2017-11-21] MEDS: BOOST 8 ounces PO SCH ×3 (08:00→18:00)
[2017-11-21 09:54] VITALS: BP 99/52
[2017-11-21] MEDS: PRO-STAT 64 30ML GT SCH ×2 (10:00→22:52)
[2017-11-21] MEDS: DOXAZOSIN MESYL 2 MG TAB PO SCH (10:00)
[2017-11-21] MEDS: DOXYCYCLINE 100 MG TAB/CAP PO SCH ×2 (10:07→22:52)
[2017-11-21] MEDS: LINEZOLID 600MG/300ML 300 ML IV SCH ×2 (10:07→22:52)
[2017-11-21] MEDS: ALLOPURINOL 300 MG TAB PO SCH (10:07)
[2017-11-21] MEDS: DIGOXIN 0.125 MG TAB PO SCH (10:08)
[2017-11-21] MEDS: ASCORBIC ACID 500 MG TAB PO SCH ×2 (10:08→22:53)
[2017-11-21] MEDS: MULTIPLE VITAMIN TAB PO SCH (10:09)
[2017-11-21 12:31] VITALS: BP 99/53
[2017-11-21] MEDS: D5W/SOD CHL 0.2% 1,000 ML IV SCH (15:48)
[2017-11-21 16:39] VITALS: BP 147/70
[2017-11-21] MEDS: RIVAROXABAN 20 MG TAB PO SCH ×2 (18:00→18:34)
[2017-11-21 22:00] VITALS: BP 95/48
[2017-11-22] MEDS: IPRATROPIUM BROM 0.5 MG/2.5ML INH SOL NEB PRN (02:04)
[2017-11-22] MEDS: ALBUTEROL SULF 2.5 MG/0.5ML(0.5%) NEB SOLN NEB PRN ×2 (02:04→22:09)
[2017-11-22] MEDS: ACETYLCYSTEINE 20%(200MG/ML) SOL 4ML NEB SCH ×6 (02:05→22:09)
[2017-11-22 05:00] VITALS: BP 95/50
[2017-11-22] MEDS: D5W/SOD CHL 0.2% 1,000 ML IV SCH ×2 (06:05→10:00)
[2017-11-22] MEDS: SODIUM CHLOR 0.9% PF (SALINE LOCK) 10ML VIAL IV SCH ×3 (06:05→22:15)
[2017-11-22] MEDS: LEVOTHYROXINE SODIUM 112 MCG TAB PO SCH (06:05)
[2017-11-22 06:15] LABS: Basophils # (auto) 0 uL; Basophils % (auto) 0.7 % (0.0-2.0); Eosinophils # (auto) 0.1 uL; Eosinophils % (auto) 2.7 % (0.0-7.0); Hematocrit 34.6 % (41.0-53.0); Lymphocytes # (auto) 0.9 uL; Lymphocytes % (auto) 16.1 % (10.0-50.0); Mean Corpuscular Hemoglobin 31.2 pg (28.0-32.0); Mean Corpuscular Hgb Conc. 31.8 g/dL (32.0-36.0); Monocytes # (auto) 0.3 uL; Monocytes % (auto) 5.9 % (0.0-12.0); Neutrophils # (auto) 4.2 uL; Neutrophils % (auto) 74.6 % (37.0-80.0); Nucleated Red Blood Cells % 0.2 %; Platelet Count (auto) 158 10^3/uL (140-450); Red Blood Cells 3.53 10^6/uL (4.5-5.90); Red Cell Distribution Width 16.9 % (11.8-14.3); White Blood Cell 5.6 10^3/uL (4.4-10.8)
[2017-11-22 06:30] LABS: Potassium 4.3 mmol/L (3.5-5.1)
[2017-11-22 06:49] LABS: BUN/Creatinine Ratio 55.5; Calcium 9.9 mg/dL (8.5-10.1)
[2017-11-22] MEDS: IPRATROPIUM BROM 0.5 MG/2.5ML INH SOL NEB SCH ×4 (06:53→18:14)
[2017-11-22] MEDS: ALBUTEROL SULF 2.5 MG/0.5ML(0.5%) NEB SOLN NEB SCH ×4 (06:53→18:14)
[2017-11-22 09:00] VITALS: BP 119/48
[2017-11-22] MEDS: ALLOPURINOL 300 MG TAB PO SCH (09:32)
[2017-11-22] MEDS: ASCORBIC ACID 500 MG TAB PO SCH ×2 (09:32→21:44)
[2017-11-22] MEDS: DOXYCYCLINE 100 MG TAB/CAP PO SCH ×2 (09:32→21:42)
[2017-11-22] MEDS: MULTIPLE VITAMIN TAB PO SCH (09:32)
[2017-11-22] MEDS: DIGOXIN 0.125 MG TAB PO SCH (09:34)
[2017-11-22] MEDS: BOOST 8 ounces PO SCH ×3 (09:34→22:16)
[2017-11-22] MEDS: LINEZOLID 600MG/300ML 300 ML IV SCH ×2 (09:34→21:45)
[2017-11-22] MEDS: PRO-STAT 64 30ML GT SCH ×2 (10:00→22:15)
[2017-11-22] MEDS: DOXAZOSIN MESYL 2 MG TAB PO SCH (10:00)
[2017-11-22 12:54] VITALS: BP 105/58
[2017-11-22 17:12] VITALS: BP 118/44
[2017-11-22] MEDS: RIVAROXABAN 20 MG TAB PO SCH (18:18)
[2017-11-22 20:00] VITALS: BP 153/53
[2017-11-22 21:49] VITALS: BP 153/53
[2017-11-23] MEDS: D5W/SOD CHL 0.2% 1,000 ML IV SCH ×3 (01:59→16:22)
[2017-11-23] MEDS: ACETYLCYSTEINE 20%(200MG/ML) SOL 4ML NEB SCH ×6 (02:07→22:00)
[2017-11-23] MEDS: ALBUTEROL SULF 2.5 MG/0.5ML(0.5%) NEB SOLN NEB PRN (02:07)
[2017-11-23 04:46] VITALS: BP 101/40
[2017-11-23] MEDS: IPRATROPIUM BROM 0.5 MG/2.5ML INH SOL NEB SCH ×4 (05:51→18:20)
[2017-11-23] MEDS: ALBUTEROL SULF 2.5 MG/0.5ML(0.5%) NEB SOLN NEB SCH ×4 (05:51→18:19)
[2017-11-23] MEDS: SODIUM CHLOR 0.9% PF (SALINE LOCK) 10ML VIAL IV SCH ×3 (06:07→22:38)
[2017-11-23] MEDS: LEVOTHYROXINE SODIUM 112 MCG TAB PO SCH (06:31)
[2017-11-23 06:47] LABS: BUN/Creatinine Ratio 47.5; Calcium 9.7 mg/dL (8.5-10.1)
[2017-11-23] MEDS: BOOST 8 ounces PO SCH ×3 (08:00→17:57)
[2017-11-23 08:32] VITALS: BP 103/50
[2017-11-23] MEDS: ALLOPURINOL 300 MG TAB PO SCH (09:36)
[2017-11-23] MEDS: ASCORBIC ACID 500 MG TAB PO SCH ×3 (09:36→22:37)
[2017-11-23] MEDS: MULTIPLE VITAMIN TAB PO SCH (09:36)
[2017-11-23] MEDS: DIGOXIN 0.125 MG TAB PO SCH (09:36)
[2017-11-23] MEDS: DOXYCYCLINE 100 MG TAB/CAP PO SCH ×3 (09:36→22:37)
[2017-11-23] MEDS: PRO-STAT 64 30ML GT SCH ×2 (09:37→22:00)
[2017-11-23] MEDS: LINEZOLID 600MG/300ML 300 ML IV SCH (09:37)
[2017-11-23] MEDS: DOXAZOSIN MESYL 2 MG TAB PO SCH (09:37)
[2017-11-23 12:13] VITALS: BP 102/50
[2017-11-23 17:11] VITALS: BP 113/52
[2017-11-23] MEDS: RIVAROXABAN 20 MG TAB PO SCH (17:57)
[2017-11-23 20:00] VITALS: BP 96/55
[2017-11-23 21:36] VITALS: BP 96/55
[2017-11-23] MEDS: LINEZOLID 600MG TABLET PO SCH ×2 (22:16→22:37)
[2017-11-24 04:56] VITALS: BP 93/56
[2017-11-24] MEDS: D5W/SOD CHL 0.2% 1,000 ML IV SCH (05:18)
[2017-11-24] MEDS: ACETYLCYSTEINE 20%(200MG/ML) SOL 4ML NEB SCH ×2 (06:02→10:22)
[2017-11-24] MEDS: ALBUTEROL SULF 2.5 MG/0.5ML(0.5%) NEB SOLN NEB SCH ×2 (06:02→10:22)
[2017-11-24] MEDS: IPRATROPIUM BROM 0.5 MG/2.5ML INH SOL NEB SCH ×2 (06:02→10:22)
[2017-11-24] MEDS: LEVOTHYROXINE SODIUM 112 MCG TAB PO SCH (06:06)
[2017-11-24] MEDS: SODIUM CHLOR 0.9% PF (SALINE LOCK) 10ML VIAL IV SCH (06:06)
[2017-11-24 06:50] LABS: Basophils # (auto) 0 uL; Basophils % (auto) 0.3 % (0.0-2.0); Eosinophils # (auto) 0.1 uL; Eosinophils % (auto) 0.6 % (0.0-7.0); Lymphocytes # (auto) 1.8 uL; Lymphocytes % (auto) 18.3 % (10.0-50.0); Mean Corpuscular Hemoglobin 31.2 pg (28.0-32.0); Mean Corpuscular Hgb Conc. 31.1 g/dL (32.0-36.0); Mean Corpuscular Volume 100.2 fL (80.0-100.0); Monocytes # (auto) 0.5 uL; Neutrophils # (auto) 7.5 uL; Neutrophils % (auto) 75.8 % (37.0-80.0); Nucleated Red Blood Cells % 0.2 %; Platelet Count (auto) 184 10^3/uL (140-450); Red Cell Distribution Width 17.6 % (11.8-14.3)
[2017-11-24 07:02] LABS: BUN/Creatinine Ratio 32.2; Calcium 9.9 mg/dL (8.5-10.1); Potassium 4.6 mmol/L (3.5-5.1)
[2017-11-24] MEDS: BOOST 8 ounces PO SCH (08:00)
[2017-11-24 09:00] VITALS: BP 48/26
[2017-11-24] MEDS: PRO-STAT 64 30ML GT SCH (09:36)
[2017-11-24] MEDS: DOXYCYCLINE 100 MG TAB/CAP PO SCH (09:37)
[2017-11-24] MEDS: ASCORBIC ACID 500 MG TAB PO SCH (09:37)
[2017-11-24] MEDS: MULTIPLE VITAMIN TAB PO SCH (09:37)
[2017-11-24] MEDS: ALLOPURINOL 300 MG TAB PO SCH (09:37)
[2017-11-24] MEDS: DIGOXIN 0.125 MG TAB PO SCH (09:38)
[2017-11-24] MEDS: LINEZOLID 600MG TABLET PO SCH (09:38)
[2017-11-24] MEDS: DOXAZOSIN MESYL 2 MG TAB PO SCH (09:42)
[2017-11-24 10:43] VITALS: BP 113/43
== END 2017-11-24 11:20 | disposition expired | DRG 871 ==
LOC: TELE-EAST 15:09 → DOU IN ICU 11-09 18:05 → EAST 11-19 22:45 → TELE-EAST 11-22 09:11
PROVIDERS: ADMIT Internal Medicine Cardiovascular Disease; ATTEND Internal Medicine Cardiovascular Disease
DX: A41.9 Sepsis, unspecified organism (principal); J96.90 Respiratory failure, unspecified, unspecified whether with hypoxia or hypercapnia; E43 Unspecified severe protein-calorie malnutrition; I50.23 Acute on chronic systolic (congestive) heart failure; E86.9 Volume depletion, unspecified; F03.90 Unspecified dementia, unspecified severity, without behavioral disturbance, psychotic disturbance, mood disturbance, and anxiety; I27.81 Cor pulmonale (chronic); I73.9 Peripheral vascular disease, unspecified; M86.9 Osteomyelitis, unspecified; Z51.5 Encounter for palliative care; Z66 Do not resuscitate; I46.9 Cardiac arrest, cause unspecified; J44.9 Chronic obstructive pulmonary disease, unspecified; F09 Unspecified mental disorder due to known physiological condition; N18.3 Chronic kidney disease, stage 3 (moderate); I25.5 Ischemic cardiomyopathy; B95.62 Methicillin resistant Staphylococcus aureus infection as the cause of diseases classified elsewhere; Z68.28 Body mass index [BMI] 28.0-28.9, adult; Z95.0 Presence of cardiac pacemaker
CPT/HCPCS: 31720; 36415; 36600; 70450; 71045; 80048; 80053; 80202; 81001; 81003; 82805; 83605; 83735; 83880; 84100; 85025; 85610; 85652; 85730; 86850; 86900; 86901; 87040; 87077; 87081; 87086; 87088; 87186; 87205; 92610; 93005; 94640; 94660; 94667; 94668; 96365; G0463; J1071; J1642

== ENCOUNTER → 2017-11-06 | Outpatient (CLI) | payer MEDICARE, OTHER ==
[~2017-11-06] MED LIST changes: +ALBUTEROL SULF 2.5 MG/0.5ML(0.5%) NEB SOLN NEB SCH; +ALBUTEROL SULF 2.5 MG/0.5ML(0.5%) NEB SOLN ONE; +ALLOPURINOL 300 MG TAB PO SCH; +DIGOXIN 0.125 MG TAB PO SCH; +DOXAZOSIN MESYL 2 MG TAB PO SCH; +HYDROcodone-ACET 10/325MG TAB PO PRN; +LEVOFLOXACIN 500 MG TAB ONE; +LEVOFLOXACIN 500 MG TAB PO SCH; +LEVOTHYROXINE SODIUM 112 MCG TAB PO SCH; +MORPHINE SULFATE 10 MG/ML INJ 1ML SDV IV PRN; +NITROGLYCERIN 0.4 MG SL TAB SL PRN; +PATIENTS OWN MEDICATION PO SCH; +POTASSIUM CHL 20 Meq TABLET PO SCH; +SODIUM CHLOR 0.9% PF (SALINE LOCK) 10ML VIAL IV SCH; +TORSEMIDE 20 MG TAB PO SCH; +VANCOMYCIN 1GM/250ML 250 ML IV ONE; +VANCOMYCIN 1GM/250ML 250 ML IV SCH
[2017-11-06 10:23] LABS: Basophils # (auto) 0 uL; Basophils % (auto) 0.4 % (0.0-2.0); Eosinophils # (auto) 0.3 uL; Hematocrit 38.8 % (41.0-53.0); Lymphocytes # (auto) 1.2 uL; Lymphocytes % (auto) 13.6 % (10.0-50.0); Mean Corpuscular Hemoglobin 32.1 pg (28.0-32.0); Mean Corpuscular Hgb Conc. 33.5 g/dL (32.0-36.0); Mean Corpuscular Volume 95.9 fL (80.0-100.0); Monocytes # (auto) 0.7 uL; Monocytes % (auto) 7.7 % (0.0-12.0); Neutrophils # (auto) 6.8 uL; Neutrophils % (auto) 75.3 % (37.0-80.0); Nucleated Red Blood Cells % 0.1 %; Platelet Count (auto) 232 10^3/uL (140-450); Red Blood Cells 4.05 10^6/uL (4.5-5.90); Red Cell Distribution Width 15.9 % (11.8-14.3)
[2017-11-06 10:24] LABS: Albumin 3.1 g/dL (3.4-5.0); BUN/Creatinine Ratio 33.5; Calcium 8.8 mg/dL (8.5-10.1); Potassium 3.7 mmol/L (3.5-5.1); Total Protein 8.3 g/dL (6.4-8.2)
[2017-11-06 12:32] LABS: Urine Blood Negative /uL (Negative)
[2017-11-06 15:00] VITALS: BP 109/51
== END | disposition home or self-care (01) ==
LOC: CHF HDHVI 09:27
PROVIDERS: ATTEND Internal Medicine Cardiovascular Disease
DX: D64.9 Anemia, unspecified (principal); R70.0 Elevated erythrocyte sedimentation rate; I10 Essential (primary) hypertension; N39.0 Urinary tract infection, site not specified
CPT/HCPCS: 36415; 80053; 81003; 85025; 85652; 87088; 94640; 96365; G0463; J1642